=== PATIENT | male | born 1975 | race Caucasian/White ===

== ENCOUNTER 2019-10-30 14:18 | Emergency (ER) | payer BC ==
--- OUTSIDE RECORDS SUMMARY | 2019-10-30 14:40 | XMS REPORT | Continuity of Care Document ---
:1975 Author Organization [employer] Care Team Providers Name Role Phone [employer] Unavailable Un available Problems Problem Status Onset Classification Date Comments Sourc e Date Reported Hypercholesterolemia Active Problem 07/16/2018 [facility] (disorder) [facility] Hypertensive disorder, Active Problem 07/16/2018 systemic arterial Me dical (disorder) Group Medications Medication Details Route Status Patient Ordering Order Source Instructions Provider Date atorvastatin 20 20 mg = 1 Active MH mg oral tablet tab, PO, 018 Medical Bedtime, # Group 90 tab, 5 Refill(s), Pharmacy: [facility] [id number] irbesartan 150 150 mg = 1 Active MH mg oral tablet tab, PO, 018 Medical Daily, # 90 Group tab, 5 Refill(s), Pharmacy: [facility] [id number] ubiquinone 100 100 mg = 1 Active MH mg oral capsule cap, PO, 018 Medical Daily, # 30 Group cap, 0 Refill(s) Melatonin 10 mg 10 mg = 1 Active MH oral capsule cap, PO, 018 Medical Bedtime, 0 Group Refill(s) multivitamin Daily, 0 Active MH Refill(s) 018 Medical Group [place]-3 oral 0 Refill(s) Active MH capsule 018 Medical Group Allergies, Adverse Reactions, Alerts Substance Category Reaction Severity Reaction Status Date Comments S ource type Reported NKFA Assertion Food Active allergy Medical Group No Known Assertion Drug MH Medication allergy Medic al Allergies Group Immunizations No Data Provided for This Section Results No Data Provided for This Section Pathology Reports No Data Provided for This Section Diagnostic Reports No Data Provided for This Section Consultation Notes No Data Provided for This Section Discharge Summaries No Data Provided for This Section History and Physicals No Data Provided for This Section Vital Signs Vital Sign Value Date Comments Source Heart Rate 84 12/27/2017 [facility] p Temperature Oral (F) 97.9 F 12/27/2017 [facility] Systolic (mm Hg) 131 12/27/2017 Medical Group Diastolic (mm Hg) 94 12/27/2017 Medical Group BMI Calculated 26.84 12/27/2017 Medical Gr oup Weight 97.415 12/27/2017 Medical Grou p Height 190.5 cm 12/27/2017 Medical Gr[facility] p Weight 98.267 07/06/2017 Medical Grou p BMI Calculated 27.08 07/06/2017 Medical Gr oup Height 190.5 cm 07/06/2017 Medical Gr[facility] p Temperature Oral (F) 97.8 F 07/06/2017 [facility] Heart Rate 61 07/06/2017 Medical Gr[facility] p Systolic (mm Hg) 136 07/06/2017 [facility] Diastolic (mm Hg) 93 07/06/2017 Medical Group Height 190.5 cm 04/13/2017 Medical Grou p Weight 98.295 04/13/2017 Medical Grou p BMI Calculated 27.09 04/13/2017 Medical Gr oup Systolic (mm Hg) 148 04/13/2017 Medical Group Diastolic (mm Hg) 95 04/13/2017 Medical Group Heart Rate 73 04/13/2017 Medical Grou p Temperature Oral (F) 97.8 F 04/13/2017 [facility] Encounters Location Location Encounter Encounter Reason Attending ADM DC Stat us Source Details Type Number For Provider Date Date Visit Outpatient [id number] JESSENIA CALVERT 04/13 [facility] Outpatient [id number] Jessenia Calvert 04/13 04/14 Primary /2017 [facility] Phone [id number] 04/14 04/16 Primary Message /2017 [facility] Phone [id number] 04/16 04/18 Primary Message /2017 [facility] Phone [id number] 04/16 04/18 Primary Message /2017 Medical Care [facility] Phone [id number] 07/05 07/07 Primary Message /2017 [facility] Outpatient [id number] JESSENIA CALVERT 07/06 Acti ve [facility] Outpatient [id number] Jessenia Calvert 07/06 07/07 Primary /2017 Medical Care [facility] Outpatient [id number] JESSENIA NEHAL 12/27 Acti ve [facility] Outpatient [id number] Jessenia Nehal 12/27 12/28 Primary /2017 [facility] Outpatient [id number] JESSENIA NEHAL 05/11 Acti ve [facility] Ambulatory [id number] Jessenia Nehal 05/11 05/11 Primary Pre-Reg /2018 [facility] Phone [phone] 05/11 05/13 Primary Message /2018 [facility] Procedures Procedure Code Date Perfomer Comments Source Miscellaneous [id number] 03/15/2013 Broken bone on [facility] operations<sup>1</s left foot toe. G roup up> Amputation of [id number] 03/15/2009 Right foot Medical toe<sup>2</sup> Group Assessment and Plan No Data Provided for This Section Plan of Care No Data Provided for This Section Social History Social History Date Source Social History TypeResponse 12/27/2017 Medical G roup Smoking Status Never smoker; Exposure to Tobacco Smoke None; Cigarette Smoking Last 365 Days No; Reg Smoking Cessation Counseling No entered on: 12/27/17 Family History No Data Provided for This Section Advance Directives No Data Provided for This Section Functional Status No Data Provided for This Section
--- NOTE | 2019-10-30 15:02 | RAD REPORT ---
EXAM DESCRIPTION: CT - Stone Protocol - 10/30/2019 2:50 pm CLINICAL HISTORY: Flank pain. ABD PAIN COMPARISON: No comparisons TECHNIQUE: Axial images were obtained without oral or IV contrast. Lack of contrast limits solid org an and vascular assessment. The [id number] spans the entirety of the system partially obscuring uppermost abdomen and lung bases. Coronal reformatted images were obtained and reviewed. All CT scans are performed using dose optimization technique as appropriate and may include automated exposure control or mA/KV adjustment according to patient size. FINDINGS: The lower lung shirley are clear. Imaged portions of the liver and spleen show no suspicious findings on non-contrast imaging. The panc reas and adrenal glands are normal. No pathologic lymphadenopathy in the abdomen or pelvis. Punctate calculus is seen superior pole left kidney. No hydronephrosis present. Small cyst is present superior pole left kidney measuring 2 cm. No bowel obstruction, free air, free fluid or abscess. Normal appendix noted.There is inflammatory ch anges seen surrounding the sigmoid colon in the left lower quadrant involving the a 6 cm length of th e sigmoid colon compatible with acute diverticulitis. Mild dextroscoliosis of the lumbar spine. IMPRESSION: Mild acute sigmoid diverticulitis is present without abscess. Suggest followup colonoscopy after appropriate therapy to ensure that a inflammatory mass is not pres ent in the region.
[2019-10-30] MEDS ORDERED: CIPROFLOXACIN 400mg IV 400 MG/200 ML BAG IV ONE (15:17)
[2019-10-30] MEDS ORDERED: METRONIDAZOLE 500mg IVPB 500 MG/100 ML BAG IV ONE (15:17)
[2019-10-30] MEDS ORDERED: NA CHLORIDE 0.9% 1,000 ML ONE (15:21)
[2019-10-30 15:56] LABS: Absolute Lymphocytes (CBC) 0.9 K/uL (0.7-4.9); Basophils % 0.1 % (0-1.3); Hematocrit 43.4 % (39.6-49.0); Lymphocytes % 6.7 % (15.3-44.8); MPV 7.8 fL (7.6-11.3); RBC Red Blood Cell Count 4.75 M/uL (4.33-5.43)
[2019-10-30 16:11] LABS: Albumin 3.8 g/dL (3.4-5.0); Bilirubin Direct 0.1 mg/dL (0-0.2); Bilirubin Total 0.6 mg/dL (0.2-1.0); Potassium 3.3 mmol/L (3.5-5.1); Protein, Total 6.7 g/dL (6.4-8.2)
--- NOTE | 2019-10-30 16:14 | EDPHYS ---
Physician Documentation [facility] Name: Ector Mary Age: 44 yrs Sex: Male : 1975 Arrival Date: 10/30/2019 Time: 14:23 Bed 17 Private MD: ED Physician Rolo Vanegas HPI: 10/29 16:10 This 44 yrs old Male presents to ER via EMS with complaints of Abdominal Pain.rn 16:10 The patient presents with abdominal pain in the left lower quadrant. Onset: The rn symptoms/episode began/occurred today. The symptoms do not radiate. Associated signs and symptoms: Pertinent positives: nausea. The symptoms are described as intermittent, sharp. Modifying factors: The symptoms are alleviated by nothing, the symptoms are aggravated by touching the area. Severity of pain: At its worst the pain was moderate in the emergency department the pain has improved. The patient has not experienced similar symptoms in the past. Historical: - Allergies: 14:27 No Known Allergies; em - PMHx: 14:27 Hyperlipidemia; Hypertension; em - PSHx: 14:27 toe amputation; em - Immunization history:: Adult Immunizations up to date. - Social history:: Smoking status: Patient denies any tobacco usage or history of. - Family history:: not pertinent. - Hospitalizations: : No recent hospitalization is reported. ROS: 16:10 Constitutional: Negative for fever, chills, and weight loss, Eyes: Negative for injury, rn pain, redness, and discharge, Neck: Negative for injury, pain, and swelling, Cardiovascular: Negative for chest pain, palpitations, and edema, Respiratory: Negative for shortness of breath, cough, wheezing, and pleuritic chest pain, Abdomen/GI: + abd pain with nausea MS/Extremity: Negative for injury and deformity, Skin: Negative for injury, rash, and discoloration, Neuro: Negative for headache, weakness, numbness, tingling, and seizure. Exam: 16:10 Constitutional: This is a well developed, well nourished patient who is awake, alert, rn and in no acute distress. Head/Face: Normocephalic, atraumatic. Cardiovascular: Regular rate and rhythm. No pulse deficits. Respiratory: Mild tachypnea. speaking full sentences Abdomen/GI: soft, mild LLQ tenderness, no rebound Skin: Warm, dry MS/ Extremity: Pulses equal, no cyanosis. Neurovascular intact. Full, normal range of motion. Equal circumference. Neuro: Awake and alert, GCS 15 Vital Signs: 14:23 BP 133 / 96; Pulse 69; Resp 22; Pulse Ox 100% on R/A; Weight 93.44 kg; Height 6 ft. 3 em in. (190.50 cm); Pain 4/10; 15:00 BP 137 / 82; Pulse 70; Resp 16; Pulse Ox 100% ; jl7 16:00 BP 127 / 71; Pulse 72; Resp 18; Pulse Ox 97% ; jl7 16:45 BP 123 / 69; Pulse 77; Resp 17; Pulse Ox 97% ; jl7 14:23 Body Mass Index 25.75 (93.44 kg, 190.50 cm) em MDM: 14:35 Patient medically screened. rn 16:10 Differential diagnosis: diverticulitis, gastritis, non-specific abd pain, rn Ureterolithiasis. Data reviewed: vital signs, nurses notes, lab test result(s), radiologic studies, CT scan, and as a result, I will discharge patient. Counseling: I had a detailed discussion with the patient and/or guardian regarding: the historical points, exam findings, and any diagnostic results supporting the discharge/admit diagnosis, lab results, radiology results, the need for outpatient follow up, to return to the emergency department if symptoms worsen or persist or if there are any questions or concerns that arise at home. Response to treatment: the patient's symptoms have markedly improved after treatment, and as a result, I will discharge patient. Special discussion: I discussed with the patient/guardian in detail that at this point there is no indication for admission to the hospital. It is understood, however, that if the symptoms persist or worsen the patient needs to return immediately for re-evaluation. Based on the history and exam findings, there is no indication for further emergent testing or inpatient evaluation. 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 I discussed with the patient/guardian the need to see the primary care provider for further evaluation of the symptoms. 10/29 14:35 Order name: Basic Metabolic Panel; Complete Time: 16:23 rn 10/29 14:35 Order name: CBC with Diff; Complete Time: 14:04 rn 10/29 14:35 Order name: Hepatic Function; Complete Time: 16:23 rn 10/29 14:35 Order name: Lipase; Complete Time: 16:23 rn 10/29 14:35 Order name: Urine Culture rn 10/29 14:35 Order name: Urine Microscopic Only; Complete Time: 14:04 rn 10/29 14:35 Order name: IV Saline Lock; Complete Time: 15:37 rn 10/29 14:35 Order name: Labs collected and sent; Complete Time: 15:37 rn 10/29 14:35 Order name: CT Stone Protocol; Complete Time: 15:03 rn 10/29 15:49 Order name: Urine Dipstick--Ancillary (enter results); Complete Time: 14:04 eb 10/29 14:35 Order name: Urine Dipstick-Ancillary (obtain specimen); Complete Time: 15:37 rn Administered Medications: 15:30 Drug: Cipro 400 mg Volume: 200 ml; Route: IVPB; Infused Over: 60 mins; Site: left wrist;jl7 16:30 Follow up: Response: No adverse reaction; IV Status: Completed infusion jl7 15:30 Drug: NS 0.9% 1000 ml Route: IV; Rate: 1 bolus; Site: left wrist; jl7 16:30 Follow up: Response: No adverse reaction; IV Status: Completed infusion; IV Intake: jl7 1000ml 15:35 Drug: Flagyl 500 mg Volume: 100 ml; Route: IVPB; Rate: 200 ml/hr; Infused Over: 30 jl7 mins; Site: left wrist; 16:05 Follow up: Response: No adverse reaction; IV Status: Completed infusion jl7 16:40 Drug: Demerol 25 mg Route: IVP; Site: left wrist; jl7 17:00 Follow up: Response: No adverse reaction; Pain is decreased jl7 Disposition: 10/30/19 16:14 Discharged to Home. Impression: Diverticulitis of large intestine without perforation or abscess without bleeding. - Condition is Stable. - Discharge Instructions: Diverticulitis. - Prescriptions for Zofran ODT 4 mg Oral tablet,disintegrating - place 1 tablet by TRANSLINGUAL route every 8 hours As needed; 15 tablet. Flagyl 500 mg Oral Tablet - take 1 tablet by ORAL route every 8 hours for 10 days; 30 tablet. Tylenol- Codeine #3 300-30 mg Oral Tablet - take 1 tablet by ORAL route every 6 hours As needed; 20 tablet. Cipro 500 mg Oral Tablet - take 1 tablet by ORAL route every 12 hours for 10 days; 20 tablet. - Medication Reconciliation Form, Thank You Letter, Antibiotic Education, Prescription Opioid Use form. - Follow up: Private Physician; When: As needed; Reason: Recheck today's complaints, Re-evaluation by your physician. - Problem is new. - Symptoms have improved. Signatures: Dispatcher [employer] [place], RN Rolo Castaneda MD MD rn Leal, Jahala, RN RN jl7 Corrections: (The following items were deleted from the chart) 17:17 16:14 10/30/2019 16:14 Discharged to Home. Impression: Diverticulitis of large jl7 intestine without perforation or abscess without bleeding. Condition is Stable. Forms are Medication Reconciliation Form, Thank You Letter, Antibiotic Education, Prescription Opioid Use. Follow up: Private Physician; When: As needed; Reason: Recheck today's complaints, Re-evaluation by your physician. Problem is new. Symptoms have improved. rn
--- NOTE | 2019-10-30 16:14 | ER ---
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 Coronavirus screen: Client denies travel out of the [place] in the last 14 days. Ebola Screen: Patient negative for fever greater than or equal to 101.5 degrees Fahrenheit, and additional compatible Ebola Virus Disease symptoms Patient denies exposure to infectious person. Patient denies travel to an Ebola-affected area in the 21 days before illness onset. No symptoms or risks identified at this time. Initial Sepsis Screen: Does the patient meet any 2 criteria? No. Patient's initial sepsis screen is negative. Does the patient have a suspected source of infection? No. Patient's initial sepsis screen is negative. Risk Assessment: Do you want to hurt yourself or someone else? Patient reports no desire to harm self or others. Onset of symptoms was October 30, 2019. 14:23 Method Of Arrival: EMS: [facility] em 14:23 Acuity: ANGELO 3 em Triage Assessment: 14:27 General: Appears in no apparent distress. uncomfortable, Behavior is calm, cooperative. em Pain: Complains of pain in pelvis Pain currently is 4 out of 10 on a pain scale. Neuro: Level of Consciousness is awake, alert, obeys commands, Oriented to person, place, time, situation, Appropriate for age. Respiratory: Airway is patent Respiratory effort is even, unlabored, Respiratory pattern is regular, symmetrical. GI: Abdomen is distended, Patient currently denies nausea, vomiting. : Denies burning with urination. Derm: Skin is intact, is healthy with good turgor, Skin is pink, warm \T\ dry. Musculoskeletal: Capillary refill < 3 seconds, Range of motion: intact in all extremities. Historical: - Allergies: 14: No Known Allergies; em - PMHx: 14:27 Hyperlipidemia; Hypertension; em - PSHx: 14:27 toe amputation; em - Immunization history:: Adult Immunizations up to date. - Social history:: Smoking status: Patient denies any tobacco usage or history of. - Family history:: not pertinent. - Hospitalizations: : No recent hospitalization is reported. Screenin:30 Abuse screen: Denies threats or abuse. Denies injuries from another. Nutritional jl7 screening: No deficits noted. Tuberculosis screening: No symptoms or risk factors identified. Fall Risk IV access (20 points). Assessment: 14:30 General: See triage assessment. jl7 15:00 Reassessment: Pt voided approximately 200 mL. jl7 16:00 Reassessment: Patient appears in no apparent distress at this time. No changes from jl7 previously documented assessment. Patient and/or family updated on plan of care and expected duration. Pain level reassessed. Patient is alert, oriented x 3, equal unlabored respirations, skin warm/dry/pink. Vital Signs: 14:23 BP 133 / 96; Pulse 69; Resp 22; Pulse Ox 100% on R/A; Weight 93.44 kg; Height 6 ft. 3 em in. (190.50 cm); Pain 4/10; 15:00 BP 137 / 82; Pulse 70; Resp 16; Pulse Ox 100% ; jl7 16:00 BP 127 / 71; Pulse 72; Resp 18; Pulse Ox 97% ; jl7 16:45 BP 123 / 69; Pulse 77; Resp 17; Pulse Ox 97% ; jl7 14:23 Body Mass Index 25.75 (93.44 kg, 190.50 cm) em ED Course: 14:23 Patient arrived in ED. em 14:26 Triage completed. em 14:27 Arm band placed on. em 14:30 Patient has correct armband on for positive identification. Bed in low position. Call jl light in reach. Side rails up X 1. Pulse ox on. NIBP on. 14:30 Maintain EMS IV. Dressing intact. Good blood return noted. Site clean \T\ dry. Gauge \T\ jl 7 site: 20 left wrist. 14:30 Bladder scan completed. 150 mL. jl7 14:35 Rolo Vanegas MD is Attending Physician. rn 14:50 CT Stone Protocol In Process Unspecified. EDMS 14:51 Hemant Nelson RN is Primary Nurse. jl7 15:40 Initial lab(s) drawn, by az, sent to lab. Urine collected: clean catch specimen, clear. jl7 17:10 No provider procedures requiring assistance completed. IV discontinued, intact, jl7 bleeding controlled, No redness/swelling at site. Pressure dressing applied. Administered Medications: 15:30 Drug: Cipro 400 mg Volume: 200 ml; Route: IVPB; Infused Over: 60 mins; Site: left wrist;jl7 16:30 Follow up: Response: No adverse reaction; IV Status: Completed infusion jl7 15:30 Drug: NS 0.9% 1000 ml Route: IV; Rate: 1 bolus; Site: left wrist; jl7 16:30 Follow up: Response: No adverse reaction; IV Status: Completed infusion; IV Intake: jl7 1000ml 15:35 Drug: Flagyl 500 mg Volume: 100 ml; Route: IVPB; Rate: 200 ml/hr; Infused Over: 30 jl7 mins; Site: left wrist; 16:05 Follow up: Response: No adverse reaction; IV Status: Completed infusion jl7 16:40 Drug: Demerol 25 mg Route: IVP; Site: left wrist; jl7 17:00 Follow up: Response: No adverse reaction; Pain is decreased jl7 Intake: 16:30 IV: 1000ml; Total: 1000ml. jl7 Outcome: 16:14 Discharge ordered by . rn 17:13 Discharged to home via wheelchair, with family. jl7 17:13 Condition: stable 17:13 Discharge instructions given to patient, family, Instructed on discharge instructions, follow up and referral plans. medication usage, Demonstrated understanding of instructions, follow-up care, medications, Prescriptions given X 4. 17:17 Patient left the ED. jl7 Signatures: Dispatcher [employer] Jim Beach RN RN em Nieto, Roman, MD MD rn Leal, Jahala, RN RN jl7
[2019-10-30] MEDS ORDERED: MEPERIDINE HCL 50 MG/ML ONE (16:48)
[2019-10-30 16:53] LABS: Urine Amorphous Sediment 3+ /HPF (NONE SEEN); Urine Bacteria <20 /HPF (NONE SEEN); Urine Culture Reflex Order NOT NEEDED; Urine RBC <5 /HPF (NONE SEEN)
[2019-10-30 16:55] LABS: Urine Blood NEGATIVE (NEG); Urine Glucose NEGATIVE (NEG); Urine Protein NEGATIVE (NEG); Urine Specific Gravity 1.025 (1.005-1.030)
[2019-10-30 17:40] LABS: Blood Morphology Comment NOT SEEN (NOT SEEN); Platelet Estimate ADEQ; Urine White Blood Cell Casts OK
[2019-10-30 18:10] VITALS: O2SAT 97
[2019-10-30 18:11] VITALS: BP 123/69
== END 2019-10-30 17:17 | disposition home or self-care (01) ==
LOC: ER 14:18
DX: K57.32 Diverticulitis of large intestine without perforation or abscess without bleeding (principal); I10 Essential (primary) hypertension
CPT/HCPCS: 87088; 85025; 87086; 80048; 36415; 80076; 83690; 76377; 74176; J2175; J7030; J0744; 81003; 81015; 96365; 96375; 99284

== ENCOUNTER 2019-11-07 18:02 | Inpatient (IN) | payer BC ==
--- OUTSIDE RECORDS SUMMARY | 2019-11-07 18:03 | XMS REPORT | Continuity of Care Document ---
:1975 Author Organization [employer] Care Team Providers Name Role Phone [employer] Unavailable Un available Problems Problem Status Onset [...] # Group 90 tab, 5 Refill(s), Pharmacy: [facility] [id number] irbesartan 150 150 mg = 1 Active MH mg oral tablet tab, PO, 018 Medical Daily, # 90 Group tab, 5 Refill(s), Pharmacy: [facility] [id number] ubiquinone 100 100 mg = 1 Active MH mg oral capsule cap, PO, 018 Medical Daily, # 30 Group cap, 0 Refill(s) Melatonin 10 mg 10 mg = 1 Active MH oral capsule cap, PO, 018 Medical Bedtime, 0 Group Refill(s) multivitamin Daily, 0 Active MH Refill(s) 018 Medical Group [place]-3 oral 0 Refill(s) Active MH capsule 018 [...] Number For Provider Date Date Visit Outpatient [id number] JESSENIA CALVERT 04/[address] [facility] Outpatient [id number] Jessenia Calvert 04/13 04/14 Primary /2017 [facility] Phone [id number] 04/14 04/16 Primary Message /2017 [facility] Phone [id number] 04/16 04/18 Primary Message /2017 [facility] Phone [id number] 04/16 04/18 Primary Message /2017 Medical Care [facility] Phone [id number] 07/05 07/07 Primary Message /2017 [facility] Outpatient [id number] JESSENIA CALVERT 07/06 Acti ve [facility] Outpatient [id number] Jessenia Calvert 07/06 07/07 Primary /2017 Medical Care [facility] Outpatient [id number] JESSENIA NEHAL 12/27 Acti ve [facility] Outpatient [id number] Jessenia Nehal 12/27 12/28 Primary /2017 [facility] Outpatient [id number] JESSENIA NEHAL 05/11 Acti ve [facility] Ambulatory [id number] Jessenia Nehal 05/11 05/11 Primary Pre-Reg /2018 [facility] Phone [phone] 05/11 05/13 Primary Message /2018 [facility] Procedures Procedure Code Date Perfomer Comments Source Miscellaneous [id number] 03/15/2013 Broken bone on [facility] operations<sup>1</s left foot toe. G roup up> Amputation of [id number] 03/15/2009 Right foot Medical toe<sup>2</sup> Group Assessment [...]
[2019-11-07] MEDS ORDERED: MORPHINE 4 MG/ML SYR ONE (18:30)
[2019-11-07] MEDS ORDERED: NA CHLORIDE 0.9% 1,000 ML ONE ×2 (18:30→20:08)
[2019-11-07] MEDS ORDERED: ONDANSETRON 4 MG/2 ML VIAL ONE ×2 (18:30→20:38)
[2019-11-07 18:51] LABS: Absolute Lymphocytes (CBC) 0.4 K/uL (0.7-4.9); Basophils % 0.1 % (0-1.3); Hematocrit 40.7 % (39.6-49.0); Lymphocytes % 2.8 % (15.3-44.8); MPV 7.4 fL (7.6-11.3)
[2019-11-07 19:07] LABS: Albumin 2.8 g/dL (3.4-5.0); Bilirubin Direct 0.2 mg/dL (0-0.2); Bilirubin Total 0.8 mg/dL (0.2-1.0); Potassium 3.2 mmol/L (3.5-5.1); Protein, Total 6.9 g/dL (6.4-8.2)
--- NOTE | 2019-11-07 19:29 | RAD REPORT ---
EXAM DESCRIPTION: CT - Abdomen Pelvis W Contrast - 11/07/2019 6:42 pm CLINICAL HISTORY: ABD PAIN COMPARISON: Stone Protocol dated 10/30/2019 TECHNIQUE: Biphasic, helical CT imaging of the abdomen and pelvis was performed following 100 ml non -ionic IV contrast. No oral contrast administered. All CT scans are performed using dose optimization technique as appropriate and may include automated exposure control or mA/KV adjustment according to patient size. FINDINGS: No suspicious findings in the lung bases. The liver, spleen, pancreas, gallbladder, biliary tree, adrenal glands and kidneys show no new findin gs from the October 29 study. Tightly contracted urinary bladder shows no suspicious finding. Prominen t seminal vesicles again noted. Renal function is symmetric. No acute renal parenchymal process. No new adrenal finding. No gastric dilatation or wall thickening. Duodenum is unremarkable. Patient has a large amount of noe e intraperitoneal air. Multiple dilated small bowel loops are present. Edematous/ inflammatory strand ing present throughout the peritoneal fat. Several transition points are seen in the small bowel. Pat ient may have inflammatory adhesions. The exact site of perforation is uncertain but presumed to be s igmoid colon. There is a 5 x 4 centimeter abscess in the anterior low midline pelvis (image 82/112). An additional 5 x 2 cm abscess collection is present in the lower left pelvis. This may be contiguous with the larger abscess. No other defined abscess collections seen. Small amounts of free fluid present. No pneumatosis. No hernia, mass or bulky lymphadenopathy. No suspicious bony findings. IMPRESSION: Bowel perforation pattern presumed to be at the site of recent sigmoid diverticulitis. T here is a large volume of free intraperitoneal air. Two small abscess collections are present in the midline and left low pelvis. Largest is 5 x 4 cm. The wall thickening of the sigmoid colon is slightly improved from October 29 imaging. Multiple dilated small bowel loops are present. Multiple transition points are present possibly infla mmatory adhesions. Small bowel pattern could be obstruction, ileus or a combination.
--- NOTE | 2019-11-07 19:55 | EDPHYS ---
Physician Documentation [facility] Name: Ector Mary Age: 44 yrs Sex: Male : 1975 Arrival Date: 11/07/2019 Time: 18:02 Bed 7 Private MD: NORBERT Physician Leo Bowen HPI: 11/06 19:07 This 44 yrs old Male presents to ER via Ambulatory with complaints of kb Abdominal Distention, Diverticulitis flare up, Fever. 19:07 The patient presents with abdominal pain in the left upper quadrant, in the left lower kb quadrant. Onset: The symptoms/episode began/occurred last week. The symptoms do not radiate. Associated signs and symptoms: none. The symptoms are described as constant. Modifying factors: The symptoms are alleviated by nothing, the symptoms are aggravated by nothing. Severity of pain: At its worst the pain was moderate in the emergency department the pain is unchanged. The patient has experienced a previous episode. The patient has been recently seen by a physician:. Pt reports abd pain and distention since last week, was diagnosed with diverticulitis here last Wednesday and started on antibiotics. Pt states he has been taking his antibiotics as prescribed and seemed to be getting better until today at 1500 when he started having more severe pain that has not stopped. . Historical: - Allergies: 18:16 No Known Allergies; ss - PMHx: 18:16 Hypertension; Hyperlipidemia; ss - PSHx: 18:16 toe amputation; ss - Immunization history:: Flu vaccine is not up to date. - Social history:: Smoking status: Patient denies any tobacco usage or history of. Patient/guardian denies using alcohol, street drugs. ROS: 19:07 Constitutional: Negative for fever, chills, and weight loss, Cardiovascular: Negative kb for chest pain, palpitations, and edema, Respiratory: Negative for shortness of breath, cough, wheezing, and pleuritic chest pain, Back: Negative for injury and pain, MS/Extremity: Negative for injury and deformity, Skin: Negative for injury, rash, and discoloration, Neuro: Negative for headache, weakness, numbness, tingling, and seizure. 19:07 Abdomen/GI: Positive for abdominal pain, Negative for nausea, vomiting, and diarrhea, constipation. Exam: 19:07 Constitutional: This is a well developed, well nourished patient who is awake, alert, kb and in no acute distress. Head/Face: Normocephalic, atraumatic. Chest/axilla: Normal chest wall appearance and motion. Nontender with no deformity. No lesions are appreciated. Cardiovascular: Regular rate and rhythm with a normal S1 and S2. No gallops, murmurs, or rubs. Normal PMI, no JVD. No pulse deficits. Respiratory: Lungs have equal breath sounds bilaterally, clear to auscultation and percussion. No rales, rhonchi or wheezes noted. No increased work of breathing, no retractions or nasal flaring. Back: No spinal tenderness. No costovertebral tenderness. Full range of motion. Skin: Warm, dry with normal turgor. Normal color with no rashes, no lesions, and no evidence of cellulitis. MS/ Extremity: Pulses equal, no cyanosis. Neurovascular intact. Full, normal range of motion. Neuro: Awake and alert, GCS 15, oriented to person, place, time, and situation. Cranial nerves II-XII grossly intact. Motor strength 5/5 in all extremities. Sensory grossly intact. Cerebellar exam normal. Normal gait. 19:07 Abdomen/GI: Inspection: distension, Bowel sounds: normal, in all quadrants, Palpation: soft, in all quadrants, mild abdominal tenderness, in the left lower quadrant, moderate abdominal tenderness, in the left upper quadrant. Vital Signs: 18:14 BP 92 / 63; Pulse 142; Resp 18; Temp 98.3; Pulse Ox 100% ; Pain 7/10; ss 18:58 BP 94 / 59; Pulse 117; Resp 20; Temp 99.9(O); Pulse Ox 97% on R/A; Pain 4/10; em 20:13 Weight 89.09 kg; Height 6 ft. 3 in. (190.50 cm); rv 20:22 BP 101 / 66; Pulse 108; Resp 18; Temp 99; Pulse Ox 99% on R/A; rv 20:13 Body Mass Index 24.55 (89.09 kg, 190.50 cm) rv MDM: 18:12 Patient medically screened. kb 19:06 Data reviewed: vital signs, nurses notes. Data interpreted: Pulse oximetry: on room air kb is 97 %. Interpretation: normal. 19:45 Counseling: I had a detailed discussion with the patient and/or guardian regarding: the kb historical points, exam findings, and any diagnostic results supporting the discharge/admit diagnosis, lab results, radiology results, the need for further work-up and treatment in the hospital. Physician consultation: Thierry Saldivar MD was contacted at 19:52, regarding consult, patient's condition, and will see patient in OR, immediately. 19:52 Physician consultation: Osei YATES was contacted at 19:52, regarding kb admission, to the operating room, patient's condition, and will see patient in ED, shortly. 11/06 18:19 Order name: Basic Metabolic Panel; Complete Time: 19:40 kb 11/06 18:19 Order name: CBC with Diff; Complete Time: 19:02 kb 11/06 18:19 Order name: Hepatic Function; Complete Time: 19:40 kb 11/06 18:19 Order name: Lipase; Complete Time: 19:40 kb 11/06 18:19 Order name: Blood Culture Adult (2) kb 11/06 18:19 Order name: Lactate; Complete Time: 19:09 kb 11/06 18:19 Order name: Procalcitonin; Complete Time: 20:05 kb 11/06 18:19 Order name: CT Abd/Pelvis - IV Contrast Only; Complete Time: 19:40 kb 11/06 18:54 Order name: Urine Dipstick--Ancillary (enter results); Complete Time: 20:05 bd 11/06 18:19 Order name: IV Saline Lock; Complete Time: 18:38 kb 11/06 18:19 Order name: Labs collected and sent; Complete Time: 18:38 kb 11/06 20:18 Order name: CONS Physician Consult EDMS Administered Medications: 18:32 Drug: NS 0.9% 1000 ml Route: IV; Rate: 1000 ml; Site: right forearm; em 20:09 Follow up: IV Status: Completed infusion; IV Intake: 1000ml rv 18:32 Drug: Zofran (Ondansetron) 4 mg Route: IVP; Site: right forearm; em 20:09 Follow up: Response: No adverse reaction rv 18:34 Drug: morphine 4 mg Route: IVP; Site: right forearm; em 20:08 Follow up: Response: No adverse reaction; Marked relief of symptoms; RASS: Alert and rv Calm (0) 20:00 Drug: Zosyn 3.375 grams Route: IVPB; Infused Over: 60 mins; Site: right forearm; rv 20:24 Follow up: IV Status: Infusion continued upon admission rv 20:08 Drug: NS 0.9% 1000 ml Route: IV; Rate: 125 ml/hr; Site: right forearm; rv 20:24 Follow up: IV Status: Infusion continued upon admission rv Disposition: 11/07 09:18 Co-signature as Attending Physician, Leo Bowen MD I agree with the assessment and crys plan of care. Disposition: 11/07/19 19:54 Hospitalization ordered by Alma Aleman for Inpatient Admission. Preliminary diagnosis is Diverticulitis of intestine, part unspecified, with perforation and abscess without bleeding. - Bed requested for Telemetry/MedSurg (Inpatient). - Status is Inpatient Admission. rv - Condition is Stable. - Problem is new. - Symptoms are unchanged. Signatures: Dispatcher [employer] EDMS Tracey De La Paz, STANDPIPE TENDER-C STANDPIPE TENDER-Leo Martinez MD MD cha Munoz, Edgar, RN RN Oneida Jacobs RN RN ss Vicente, Ronaldo, MAT RN rv Corrections: (The following items were deleted from the chart) 11/06 20:25 19:54 Hospitalization Ordered by Alma Aleman MD for Inpatient Admission. Preliminary rv diagnosis is Diverticulitis of intestine, part unspecified, with perforation and abscess without bleeding. Bed requested for Telemetry/MedSurg (Inpatient). Status is Inpatient Admission. Condition is Stable. Problem is new. Symptoms are unchanged. kb
--- NOTE | 2019-11-07 19:55 | ER ---
Nurse's Notes [facility] Name: Ector Mary Age: 44 yrs Sex: Male : 1975 Arrival Date: 11/07/2019 Time: 18:02 Bed 7 Private MD: Diagnosis: Diverticulitis of intestine, part unspecified, with perforation and abscess without bleeding Presentation: 11/06 18:14 Chief complaint: Patient states: Diagnosed with diverticulitis by our facility last ss week. States he has been taking his antibiotics as prescribed. Pain was slowly getting better, then returned severe at 3pm today. Coronavirus screen: Client denies travel out of the [place] in the last 14 days. At this time, the client does not indicate any symptoms associated with coronavirus-19. Ebola Screen: Patient denies travel to an Ebola-affected area in the 21 days before illness onset. Initial Sepsis Screen: Does the patient meet any 2 criteria? HR > 90 bpm. Risk Assessment: Do you want to hurt yourself or someone else? Patient reports no desire to harm self or others. Onset of symptoms is unknown. 18:14 Method Of Arrival: Ambulatory ss 18:14 Acuity: ANGELO 2 ss 20:11 Initial Sepsis Screen: Does the patient have a suspected source of infection? Yes: rv Acute abdominal pain. Historical: - Allergies: 18:16 No Known Allergies; ss - PMHx: 18:16 Hypertension; Hyperlipidemia; ss - PSHx: 18:16 toe amputation; ss - Immunization history:: Flu vaccine is not up to date. - Social history:: Smoking status: Patient denies any tobacco usage or history of. Patient/guardian denies using alcohol, street drugs. Screenin:20 Abuse screen: Denies threats or abuse. Nutritional screening: No deficits noted. em Tuberculosis screening: No symptoms or risk factors identified. Fall Risk None identified. Assessment: 18:20 General: Appears uncomfortable, ill, Behavior is calm, cooperative, appropriate for em age, Reports 101 temp. yesterday. Pain: Complains of pain in abdomen Pain currently is 6 out of 10 on a pain scale. Neuro: Level of Consciousness is awake, alert, obeys commands, Oriented to person, place, time, situation, Appropriate for age. Cardiovascular: Capillary refill < 3 seconds Patient's skin is warm and dry. Rhythm is sinus tachycardia. Respiratory: Airway is patent Respiratory effort is even, unlabored, Respiratory pattern is regular, symmetrical. GI: Abdomen is round non-distended, Bowel sounds present X 4 quads. Abd is soft X 4 quads Abdomen is tender to palpation in right lower quadrant and left lower quadrant. Derm: Skin is intact, is healthy with good turgor, Skin is pink, warm \T\ dry. Musculoskeletal: Capillary refill < 3 seconds, Range of motion: intact in all extremities. 20:09 Reassessment: patient is comfortable and stable at this time. JUDITH Webb explained the rv result of the CT scan and the plan of care. patient agreed. new orders, patient is for STAT OR. awaiting OR team. Pain: Complains of pain in right lower quadrant. Neuro: Level of Consciousness is awake, alert, obeys commands, Oriented to person, place, time, situation. Cardiovascular: Rhythm is sinus tachycardia. Respiratory: Airway is patent Respiratory effort is even, unlabored. GI: Abdomen is round non-distended. 20:23 Reassessment: report given to MAT Holliday. patient taken to OR via stretcher with rv fluids and antibiotic ongoing. Vital Signs: 18:14 BP 92 / 63; Pulse 142; Resp 18; Temp 98.3; Pulse Ox 100% ; Pain 7/10; ss 18:58 BP 94 / 59; Pulse 117; Resp 20; Temp 99.9(O); Pulse Ox 97% on R/A; Pain 4/10; em 20:13 Weight 89.09 kg; Height 6 ft. 3 in. (190.50 cm); rv 20:22 BP 101 / 66; Pulse 108; Resp 18; Temp 99; Pulse Ox 99% on R/A; rv 20:13 Body Mass Index 24.55 (89.09 kg, 190.50 cm) rv ED Course: 18:02 Patient arrived in ED. as 18:07 Tracey De La Paz FNP-C [facility]. kb 18:07 Leo Bowen MD is Attending Physician. kb 18:15 Triage completed. ss 18:16 Jim Fajardo, MAT is Primary Nurse. em 18:16 Arm band placed on Patient placed in an exam room, on a stretcher. ss 18:20 Patient has correct armband on for positive identification. Bed in low position. Call em light in reach. Side rails up X2. Pulse ox on. NIBP on. 18:30 Inserted saline lock: 20 gauge in right forearm, using aseptic technique. Blood em collected. 18:30 Initial lab(s) drawn, by me, sent to lab. First set of blood cultures drawn by me. em 18:43 CT Abd/Pelvis - IV Contrast Only In Process Unspecified. EDMS 18:45 Second set of blood cultures drawn by me. em 19:54 Alma Aleman MD is Hospitalizing Provider. kb 20:24 No provider procedures requiring assistance completed. IV is patent, with fluids rv infusing freely, Patient admitted, IV remains in place. Administered Medications: 18:32 Drug: NS 0.9% 1000 ml Route: IV; Rate: 1000 ml; Site: right forearm; em 20:09 Follow up: IV Status: Completed infusion; IV Intake: 1000ml rv 18:32 Drug: Zofran (Ondansetron) 4 mg Route: IVP; Site: right forearm; em 20:09 Follow up: Response: No adverse reaction rv 18:34 Drug: morphine 4 mg Route: IVP; Site: right forearm; em 20:08 Follow up: Response: No adverse reaction; Marked relief of symptoms; RASS: Alert and rv Calm (0) 20:00 Drug: Zosyn 3.375 grams Route: IVPB; Infused Over: 60 mins; Site: right forearm; rv 20:24 Follow up: IV Status: Infusion continued upon admission rv 20:08 Drug: NS 0.9% 1000 ml Route: IV; Rate: 125 ml/hr; Site: right forearm; rv 20:24 Follow up: IV Status: Infusion continued upon admission rv Intake: 20:09 IV: 1000ml; Total: 1000ml. rv Outcome: 19:54 Decision to Hospitalize by Provider. kb 20:24 Admitted to OR accompanied by nurse, via stretcher, with chart, Report called to rv ML RIVERO 20:24 Condition: stable 20:24 Instructed on the need for admit, SURGERY 20:25 Patient left the ED. rv Signatures: Dispatcher [employer] EDMS Tracey De La Paz, DOLLY QUINTERO-Jim Le RN RN em Radha Deal Shelby, RN RN Chava, Jules, RN RN rv
[2019-11-07 20:00] LABS: Urine Blood NEGATIVE (NEG); Urine Glucose NEGATIVE (NEG); Urine Protein 1+ (NEG); Urine Specific Gravity >1.030 (1.005-1.030); Urine pH 5.5 (5.0-7.0)
[2019-11-07] MEDS ORDERED: PIPER/TAZO/NS 3.375gm 3.375 GM/100 ML BAG ONE (20:08)
[2019-11-07] MEDS ORDERED: MIDAZOLAM HCL 2 MG/2 ML INJ ONE (20:37)
[2019-11-07] MEDS ORDERED: GLYCOPYRROLATE 0.2 MG/ML SYR ONE (20:38)
[2019-11-07] MEDS ORDERED: FENTANYL CITR 100 MCG/2 ML ONE (20:38)
[2019-11-07] MEDS ORDERED: MORPHINE 10 MG/ML VIAL ONE (20:39)
[2019-11-07] MEDS ORDERED: KETOROLAC 30 MG/ML INJ ONE (20:39)
[2019-11-07] MEDS ORDERED: ROCURONIUM 50 MG/5 ML VIAL IV ONE ×2 (20:39→20:41)
[2019-11-07] MEDS ORDERED: NEOSTIGMINE 1 MG/ML -5 ML ONE (20:39)
[2019-11-07] MEDS ORDERED: dexAMETHasone 4 MG/ML VIAL ONE (20:39)
[2019-11-07] MEDS ORDERED: propofoL 200 MG/20 ML VIAL IV ONE (20:40)
[2019-11-07] MEDS ORDERED: LIDOCAINE 1% MPF 5 ML VIAL ONE (20:41)
--- NOTE | 2019-11-07 20:41 | P.HP ---
Certification for Inpatient With expected LOS: >2 Midnights Patient will require the following post-hospital care: None Practitioner: I am a practitioner with admitting privileges, knowledge of patient current condition, hospital course, and medical plan of care. Services: Services provided to patient in accordance with Admission requirements found in Title 42 Section 412.3 of the Code of Federal Regulations <Osei Saleem - Last Filed: 11/07/19 20:36> Patient History Date of Service: 11/07/19 Reason for admission: Perforated bowel History of Present Illness: 44-year-old male with a past medical history of hypertension and hyperlipidemia who was seen earlier in the week for her diverticulitis and was prescribed Cipro and Flagyl presents to the emergency room complaining of sudden onset of worsening abdominal pain that started around 3:00 p.m. this afternoon. Patient states he felt his stomach more distended, tender to touch and his pain increased to moderate with no improvement. In the emergency room patient is alert and oriented and not in distress He is pleasant and cooperative. His lab work shows a slightly elevated white cell count with a lactic acid of 1.8. Temperature of 98.3. Blood pressure of 94/59, pulse rate of 117, and a respiratory rate of 20. CT abdomen pelvis shows a bowel perforation pattern presumed to be at the site of recent sigmoid diverticulitis. There is a large volume of free intraperitoneal air. Surgery Dr Saldivar, was consulted and patient is scheduled for surgery in a few hr. Patient is agreeable. Patient will be placed in ICU after surgery and further evaluated. Home medications list reviewed: No - Past Medical/Surgical History -: Essential hypertension -: Hyperlipidemia -: Diverticulitis -: Toe amputation Psychosocial/ Personal History: Lives at home with - Family History Family History: Reviewed- Non-Contributory - Social History Smoking Status: Never smoker Alcohol use: No CD- Drugs: No Caffeine use: No Place of Residence: Home <CharleecarlosOsei prabhakar - Last Filed: 11/07/19 20:36> Date of Service: 11/08/19 <Franco Vanegas - Last Filed: 11/08/19 16:12> Allergies No Known Allergies Allergy (Verified 11/07/19 23:44) Review of Systems General: As per HPI Eyes: Unremarkable ENT: Unremarkable Respiratory: Unremarkable Cardiovascular: Unremarkable Gastrointestinal: Abdominal Pain, Distention, As per HPI Genitourinary: Unremarkable Integumentary: Unremarkable Neurological: Unremarkable Lymphatics: Unremarkable <Osei Saleem - Last Filed: 11/07/19 20:36> Physical Examination - Vital Signs Temperature: 98.3 F Blood Pressure: 94/59 Pulse: 117 Respirations: 20 Pulse Ox (%): 97 (RA) - Physical Exam General: Alert, In no apparent distress, Oriented x3 HEENT: Atraumatic, Normocephalic, PERRLA Neck: Supple, No Thyromegaly, Other (Trachea midline) Respiratory: Clear to auscultation bilaterally, Normal air movement Cardiovascular: No edema, Normal pulses, Normal S1 S2, Irregular heart rate/rhythm (Tachycardia) Capillary refill: <2 Seconds Gastrointestinal: Hypoactive, Rigidity, Distended, Tenderness Musculoskeletal: No clubbing, No swelling, No contractures, No erythema Integumentary: No rashes, No breakdown, No significant lesion, No tenderne ss/swelling Neurological: Normal gait, Normal speech, Normal strength at 5/5 x4 extr, Normal tone - Studies Laboratory Data (last 24 hrs) 11/07/19 18:30: WBC 13.8 H, Hgb 13.8, Hct 40.7, Plt Count 361 D 11/07/19 18:30: Sodium 136, Potassium 3.2 L, BUN 32 H, Creatinine 1.07, Glucose 165 H, Total Bilirubin 0.8, AST 14 L, ALT 17, Alkaline Phosphatase 62, Lipase 82 <Osei Saleem - Last Filed: 11/07/19 20:36> - Studies Laboratory Data (last 24 hrs) 11/07/19 18:30: WBC 13.8 H, Hgb 13.8, Hct 40.7, Plt Count 361 D 11/07/19 18:30: Sodium 136, Potassium 3.2 L, BUN 32 H, Creatinine 1.07, Glucose 165 H, Total Bilirubin 0.8, AST 14 L, ALT 17, Alkaline Phosphatase 62, Lipase 82 <Franco Vanegas - Last Filed: 11/08/19 16:12> Assessment and Plan - Plan Impression: Perforated bowel complicated by recent history of diverticulitis: Essential hypertension: Hyperlipidemia: Plan: Perforated bowel complicated by recent history of diverticulitis: CT abdomen pelvis showed a perforated bowel. Surgery consulted Dr Saldivar. Patient is scheduled for surgical intervention in the next few hr. Will follow surgery recommendations. Patient will be admitted to ICU after surgery. Essential hypertension: Will order hydralazine 10 mg q.4 hr p.r.n. for systolic blood pressure greater than 160 and a diastolic blood pressure greater than 100. Will resume home medications once patient is able to tolerate p.o.. Hyperlipidemia: Will resume all medications once patient is able to tolerate p.o.. Discharge Plan: Home Plan to discharge in: Greater than 2 days - Advance Directives Does patient have a Living Will: No Does patient have a Durable POA for Healthcare: No - Code Status/Comfort Care Code Status Assessed: Yes Time Spent Managing Pts Care (In Minutes): 55 <Osei Saleem - Last Filed: 11/07/19 20:36> Physician Review Additional Text: I have discussed the plan of care for this patient with Osei Saleem, and I agree with the management as noted above. <Franco Vanegas - Last Filed: 11/08/19 16:12>
[2019-11-07] MEDS ORDERED: HYDRALAZINE HCL 20 MG/ML VIAL IV PRN (20:46)
[2019-11-07] MEDS ORDERED: NA CIT/CITRIC AC 30 ML ORAL UDC ONE (20:51)
[2019-11-07] MEDS ORDERED: Phenylephrine HCl 10 MG/ML 1 ML VIAL ONE (20:57)
--- NOTE | 2019-11-07 22:27 | P.OP ---
Fire Protection Engineer: Te ROSARIO Preoperative diagnosis: Perforated Sigmoid Diverticulitis, Abscess x 2 in Pelvis Postoperative diagnosis: Same Primary procedure: Exp Lap, JORGE LUIS, Drainage of Intraabdominal Abscess x 2, Woods's Procedure Secondary procedure: (Sigmoid Rsxn with Colostomy) Anesthesia: General Estimated blood loss: Minimal Specimen: C&S, Sigmoid Colon Findings: as above Complications: None Drain(s): Nasogastric, Urinary catheter, DEANA drain Transferred to: Recovery Room Condition: Good
[2019-11-07] MEDS: HYDROMORPHONE HCL 1 MG/ML INJ ONE ×4 (22:41→23:00)
[2019-11-07] MEDS ORDERED: SODIUM CHLORIDE 0.9% 10ML INJ IV PRN (22:42)
[2019-11-07 23:27] VITALS: BMI 24.5
[2019-11-07] MEDS: D5.45NS W/KCL 20MEQ 1,000 ML IV SCH (23:27)
[2019-11-07] MEDS: HYDROMORPHONE HCL 1 MG/ML INJ IV PRN (23:28)
[2019-11-07] MEDS ORDERED: D5 0.45 NS 0 ML IV ONE (23:31)
[2019-11-07] MEDS ORDERED: HYDROMORPHONE HCL 1 MG/ML INJ ONE (23:31)
[2019-11-07] MEDS ORDERED: D5.45NS W/KCL 20MEQ 1,000 ML IV ONE (23:33)
--- NOTE | 2019-11-07 23:38 | PREOPCON ---
Date of Consultation: 11/07/2019 Chief Complaint: Abdominal pain. History Of Present Illness: The patient is a 44-year-old gentleman, who presented to the emergency r oom about a week ago with acute abdominal pain with diagnosis of uncomplicated sigmoid diverticulitis and was discharged with oral antibiotics. He was doing well up until today at 3 o'clock, had acute onset of severe abdominal pain, nausea, but no vomiting. Some loose bowel movement, but no diarrhea or constipation. No blood in his stool. No dysuria or hematuria. No sore throat, runny nose, cough , headaches, or dizziness. No chest pain. Low-grade fevers. Review of Systems: Otherwise unremarkable. Past Medical History: Significant for hypertension, hyperlipidemia. Past Surgical History: Significant for toe surgery. Allergies: NO ALLERGIES. Social History: The patient denies smoking or drinking. Family History: Negative for any colorectal malignancy or other significant disease except for lymph arnold in the back. Physical Examination: Vital Signs: On admission, blood pressure 92/63, pulse rate of 142, temperature of 98.3, temperature did go up to 99.9 at 6:58 p.m., however, the most recent vitals showed blood pressure of 101/66, pul se of 108, respirations of 18, and temperature of 99. General: He is awake, alert, and oriented x3. Head and Neck: Cranial nerves 2 through 12 grossly within normal limits. No neck masses. No JVD. Throat clear. Neck: Supple. Chest: Clear. Heart: S1, S2. Abdomen: Soft, distended. Hypoactive bowel sounds. Diffuse rebound with tenderness and rigidity. Involuntary guarding. Extremities: Adequately perfused. Nontender. Neurologic: Nonfocal. Diagnostic Studies: CT of the abdomen and pelvis reviewed, essentially the patient has bowel perfora tion pattern, presumed to be at the site of reason sigmoid diverticulitis; large volume of free intra peritoneal air. There is 2 small abscess or collection present, midline and left lower pelvis, large st is 5 x 4 cm. Multiple dilated small bowel loops are present. Multiple transition points of prese nt, possibly inflammatory adhesions. Small bowel pattern could be obstruction, ileus, or combination . His laboratory data reviewed. White count today is 13.8 with a left shift, H and H are 13.8 and 4 0.7. Electrolytes reviewed. He had slight hypokalemia. He is not acidotic. He is dehydrated. His lactic acid is 1.8 and his procalcitonin is 0.86. Assessment: A 44-year-old gentleman with acute perforated diverticulitis with abscess x2. Recommendations: Admit n.p.o., IV fluid, IV antibiotic, to the OR for exploratory laparotomy, bowel resection, colostomy, and drainage of intraabdominal abscess x2. The patient understands the risks, benefits, and alternatives, and agrees to procedure. /MODL Voice ID: [id number] Report ID: [id number]
[2019-11-08] MEDS ORDERED: PIPER/TAZO/NS 3.375gm 3.375 GM/100 ML BAG ONE ×4 (01:33→23:58)
[2019-11-08] MEDS ORDERED: HYDROMORPHONE HCL 1 MG/ML INJ ONE ×8 (01:34→23:58)
[2019-11-08] MEDS: HYDROMORPHONE HCL 1 MG/ML INJ IV PRN ×8 (01:35→23:55)
[2019-11-08] MEDS: PIPER/TAZO/NS 3.375gm 3.375 GM/100 ML BAG IVPB SCH ×3 (02:00→17:40)
--- NOTE | 2019-11-08 02:39 | OP ---
Date of Procedure: 11/07/2019 Surgeon: Thierry Saldivar MD Plate Furnace Operator: ABRAHAM Lebron Preoperative Diagnoses: Perforated acute sigmoid diverticulitis with pelvic abscess x2. Postoperative Diagnoses: Perforated acute sigmoid diverticulitis with pelvic abscess x2 with adhesio ns. Procedures Performed: Exploratory laparotomy, lysis of adhesions, drainage of abdominal abscess x2, and sigmoid resection with colostomy, Demetrius's procedure. Estimated Blood Loss: Minimal. Specimens: Culture and sensitivity on the peritoneal fluid and sigmoid colon. Findings: As above. Anesthesia: General. Complications: None. Drains: DEANA #10 flat in the pelvis. Disposition: The patient tolerated the procedure in stable condition, taken to Recovery in good gene ral condition. Operative Note: The patient was brought to the OR, placed in supine position, general anesthesia beg un. The patient was prepped and draped in usual sterile fashion. A 20 blade was used to open the mi dline incision above the umbilicus to the pubis. Subcutaneous tissue was divided. Fascia was identi fied and divided. Peritoneal cavity was entered with sharp and blunt dissection. Free air evacuated . Pus encountered. Foul odor encountered. Two abscesses encountered, which were all aspirated, cul tures were done. The entire peritoneal cavity was irrigated thoroughly until all of the purulence wa s cleaned out and the fluid was clear. There was some fibrinous exudate in the small bowel and the s mall bowel was dilated and had points of partial obstruction, which was released secondary to adhesio ns and then the entire exploratory laparotomy revealed normal GE junction, normal stomach, normal duo denal sweep. The jejunum was dilated, however, there was no acute evidence of any disease present. Appendix, ileum, which was wrapped around the area where the perforation was in the sigmoid colon had some fibrinous exudate on it, which was debrided gently. The ascending colon, transverse colon, toro cending colon were within normal limits. The sigmoid colon was very indurated, hard, down to the rec tosigmoid junction. The white line of Toldt was mobilized and then a proximal part of the colon was divided with a KAYDEN stapling device. LigaSure was used to divide the mesocolon and then the rectosigm oid junction was divided with the contour stapling device. The specimen was removed. It was opened on the side table. No cancer was seen. It was just acute diverticulitis. Subsequently, entire abdo men was irrigated again, effluent was clear, and then the proximal colon with the descending colon wa s mobilized some more and then a 2 cm incision was made, circular in nature, in the left middle quadr ant. Subcutaneous tissue was excised. Fascia was identified. An incision was made and then the col ostomy was pulled through and then DEANA drain was placed in the pelvis as there was an abscess cavity p resent over there and secured with 3-0 nylon and then midline fascia was closed with a running #2 nyl on. Subcutaneous wounds irrigated. Bleeding controlled with cautery. Fanshawe were used to close th e skin. Sterile dressing was applied and then the colostomy was matured in the standard fashion with 3-0 chromic clockwise in nature. Digital exam of the colostomy revealed no obstruction and healthy mucosa was present. Sterile dressing was applied. The patient was awakened and taken to Recovery in good general condition. /MODL Voice ID: [id number] Report ID: [id number]
[2019-11-08 03:18] LABS: Urine Appearance CLEAR; Urine Blood NEGATIVE (NEG); Urine Color DK YELLOW; Urine Glucose NEGATIVE (NEG); Urine Protein 1+ (NEG); Urine Specific Gravity >=1.030 (1.005-1.030); Urine Urobilinogen 0.2 mg/dL (0.2-1.0); Urine pH 5.5 (5.0-7.0)
[2019-11-08 03:41] LABS: Urine Microscopic Reflex ORDER UMIC
[2019-11-08 03:42] LABS: Urine Bilirubin NEGATIVE (NEG)
[2019-11-08 04:44] LABS: Absolute Lymphocytes (CBC) 0.3 K/uL (0.7-4.9); Basophils % 0.1 % (0-1.3); Hematocrit 39.9 % (39.6-49.0); MPV 7.3 fL (7.6-11.3); RBC Red Blood Cell Count 4.39 M/uL (4.33-5.43)
[2019-11-08 04:52] LABS: Urine Bacteria <20 /HPF (NONE SEEN); Urine Mucus 1+ /HPF (NONE SEEN); Urine RBC <5 /HPF (NONE SEEN)
[2019-11-08 04:53] LABS: Urine Culture Reflex Order REFLEXED; Urine Urothelial Cells <5 /HPF (NONE SEEN)
[2019-11-08 04:59] LABS: Albumin 2.3 g/dL (3.4-5.0); Bilirubin Total 0.7 mg/dL (0.2-1.0); Magnesium 1.9 mg/dL (1.8-2.4); Phosphorus 4.3 mg/dL (2.5-4.9); Potassium 4.5 mmol/L (3.5-5.1); Protein, Total 5.8 g/dL (6.4-8.2)
[2019-11-08 05:30] LABS: Blood Morphology Comment NOT SEEN (NOT SEEN); Platelet Estimate ADEQ
[2019-11-08] MEDS: D5.45NS W/KCL 20MEQ 1,000 ML IV SCH ×3 (07:34→23:00)
[2019-11-08] MEDS ORDERED: D5.45NS W/KCL 20MEQ 1,000 ML IV ONE ×3 (07:40→20:19)
[2019-11-08] MEDS: PANTOPRAZOLE 40 MG INJ IVP SCH (09:51)
[2019-11-08] MEDS: ENOXAPARIN 40 MG/0.4 ML SQ SCH (09:51)
[2019-11-08] MEDS ORDERED: PANTOPRAZOLE 40 MG INJ ONE (09:57)
[2019-11-08] MEDS ORDERED: ENOXAPARIN 40 MG/0.4 ML SQ ONE (09:58)
--- NOTE | 2019-11-08 10:00 | PN ---
Date of Progress Note: 11/08/2019 Subjective: The patient is awake and alert. Pain is controlled on parenteral pain management. Urin e output is adequate. Laboratory Data: Reviewed. His white count is elevated with a left shift, which is expected. Objective: Vital Signs: However are very stable. He is afebrile. General: He is awake and alert. Head and Neck: No masses. Chest: Clear. Heart: S1, S2. Abdomen: Soft. Hypoactive bowel sounds. Minimal incisional tenderness. No peritonitis. Colostomy is pink, edematous. Assessment: Status post exploratory laparotomy, lysis of adhesions, drainage of intraabdominal absce ss and Demetrius's procedure. Recommendations: Continue n.p.o., NG tube. We will discontinue the Méndez later in the day once ninfa ent is mobilized by Physical Therapy. Continue IV antibiotics. DVT prophylaxis. Patient is clinica lly stable. Doing well. /MODL Voice ID: [id number] Report ID: [id number]
--- NOTE | 2019-11-08 16:19 | P.PN ---
Subjective Date of Service: 11/08/19 Chief Complaint: Perforated bowel patient reports feeling ok this morning. Reports adequate pain control, breathing comfortably, denies chest pain NGT in place and slightly bothering him, otherwise without complaints Review of Systems 10-point ROS is otherwise unremarkable Physical Examination - Vital Signs Temperature: 98.1 F Blood Pressure: 117/53 Pulse: 99 Respirations: 18 Pulse Ox (%): 99 - Physical Exam General: Alert, In no apparent distress HEENT: Other (NGT in place to LIWS) Respiratory: Clear to auscultation bilaterally, Normal air movement Cardiovascular: No edema, Regular rate/rhythm, Normal S1 S2 Gastrointestinal: Hypoactive, Tenderness (mild) Musculoskeletal: No erythema, No tenderness Integumentary: No rashes Neurological: Normal speech, Normal affect - Studies Laboratory Data (last 24 hrs) 11/07/19 18:30: WBC 13.8 H, Hgb 13.8, Hct 40.7, Plt Count 361 D 11/07/19 18:30: Sodium 136, Potassium 3.2 L, BUN 32 H, Creatinine 1.07, Glucose 165 H, Total Bilirubin 0.8, AST 14 L, ALT 17, Alkaline Phosphatase 62, Lipase 82 Assessment & Plan Physician Review Additional Text: Perforated bowel complicated by recent history of sigmoid diverticulitis Essential hypertension Hyperlipidemia Perforated bowel complicated by recent history of sigmoid diverticulitis: -CT abdomen pelvis:perforated bowel. now s/p ex-lap, JORGE LUIS, drainage of intrabdominal abscess x2, Woods's procedure -ostomy appears good, no gas/stool yet -NGT in place, incentive spirometer, SCDs -surgery following -pain control -continue zosyn -likely transfer out of ICU tomorrow Essential hypertension: -normotensive for now, can resume home meds once tolerating PO Hyperlipidemia: -Will resume all medications once patient is able to tolerate PO Time Spent Managing Pts Care (In Minutes): 35
[2019-11-09] MEDS: D5.45NS W/KCL 20MEQ 1,000 ML IV SCH ×3 (02:52→22:49)
[2019-11-09 04:39] LABS: Absolute Lymphocytes (CBC) 0.8 K/uL (0.7-4.9); Hematocrit 35.8 % (39.6-49.0); Lymphocytes % 4.1 % (15.3-44.8); MPV 7.2 fL (7.6-11.3); RBC Red Blood Cell Count 3.94 M/uL (4.33-5.43)
[2019-11-09 05:04] LABS: Albumin 2.2 g/dL (3.4-5.0); Bilirubin Total 0.3 mg/dL (0.2-1.0); Potassium 4.2 mmol/L (3.5-5.1); Protein, Total 5.8 g/dL (6.4-8.2)
[2019-11-09] MEDS: HYDROMORPHONE HCL 1 MG/ML INJ IV PRN ×4 (06:14→19:49)
[2019-11-09] MEDS ORDERED: HYDROMORPHONE HCL 1 MG/ML INJ ONE ×4 (06:23→19:55)
[2019-11-09] MEDS: PANTOPRAZOLE 40 MG INJ IVP SCH (08:34)
[2019-11-09] MEDS: ENOXAPARIN 40 MG/0.4 ML SQ SCH (08:34)
[2019-11-09] MEDS ORDERED: PANTOPRAZOLE 40 MG INJ ONE (08:43)
[2019-11-09] MEDS ORDERED: ENOXAPARIN 40 MG/0.4 ML SQ ONE (08:44)
[2019-11-09] MEDS: PIPER/TAZO/NS 3.375gm 3.375 GM/100 ML BAG IVPB SCH ×3 (09:10→16:38)
[2019-11-09] MEDS ORDERED: PIPER/TAZO/NS 3.375gm 3.375 GM/100 ML BAG ONE ×2 (09:16→16:47)
[2019-11-09] MEDS ORDERED: NS KCL 20MEQ 1,000 ML IV ONE (11:33)
[2019-11-09] MEDS ORDERED: D5.45NS W/KCL 20MEQ 1,000 ML IV ONE ×2 (11:42→19:54)
--- NOTE | 2019-11-09 12:25 | PN ---
Date of Progress Note: 11/09/2019 Subjective: Patient is awake, alert, bezoar, feels trying of his bowels but no gas with the colostom y yet. Objective: Vital Signs: Stable, afebrile. Abdomen: Benign with hypoactive bowel sounds. No air or stool in the colostomy bag. Mucosa is pink and edematous. Laboratory Data: White count is down to 19,000. Electrolytes reviewed. Assessment: Status post Demetrius's procedure and drainage of intraabdominal abscess. Recommendations: Continue IV antibiotics. NG tube ambulation. DVT prophylaxis. We will give colos glenna teaching and dietary consultation for diverticulitis diet and transfer the patient to a regular floor. Patient is clinically doing well. /MODL Voice ID: [id number] Report ID: [id number]
--- NOTE | 2019-11-09 19:01 | P.PN ---
Subjective Date of Service: 11/09/19 Chief Complaint: Perforated bowel patient reports feeling ok this morning. Reports adequate pain control, breathing comfortably, denies chest pain NGT slightly bothersome, abdominal pain getting sore Review of Systems 10-point ROS is otherwise unremarkable Physical Examination - Vital Signs Temperature: 98.7 F Blood Pressure: 121/80 Pulse: 91 Respirations: 23 Pulse Ox (%): 96 - Physical Exam General: Alert, In no apparent distress HEENT: Mucous membr. moist/pink Respiratory: Clear to auscultation bilaterally, Normal air movement Cardiovascular: No edema, Regular rate/rhythm, Normal S1 S2 Gastrointestinal: Soft and benign, Non-distended, Other (ostomy bag with slight serosanguinous fluid) Musculoskeletal: No tenderness Integumentary: No rashes, No breakdown Neurological: Normal speech, Normal affect Assessment & Plan Physician Review Additional Text: Perforated bowel complicated by recent history of sigmoid diverticulitis Essential hypertension Hyperlipidemia Perforated bowel complicated by recent history of sigmoid diverticulitis: -CT abdomen pelvis:perforated bowel. now s/p ex-lap, JORGE LUIS, drainage of intrabdominal abscess x2, Woods's procedure -ostomy appears good, no gas/stool yet -NGT in place, incentive spirometer, SCDs -beth removed, voiding without issue -surgery following -pain control -continue zosyn -transfer out of ICU today per surgery Essential hypertension: -normotensive for now, can resume home meds once tolerating PO Hyperlipidemia: -Will resume all medications once patient is able to tolerate PO Time Spent Managing Pts Care (In Minutes): 25
[2019-11-10] MEDS: HYDROMORPHONE HCL 1 MG/ML INJ IV PRN ×5 (00:06→22:41)
[2019-11-10] MEDS ORDERED: HYDROMORPHONE HCL 1 MG/ML INJ ONE ×5 (00:13→22:51)
[2019-11-10] MEDS: PIPER/TAZO/NS 3.375gm 3.375 GM/100 ML BAG IVPB SCH (00:14)
[2019-11-10] MEDS ORDERED: PIPER/TAZO/NS 3.375gm 3.375 GM/100 ML BAG ONE (00:23)
[2019-11-10 04:54] LABS: Absolute Lymphocytes (CBC) 0.8 K/uL (0.7-4.9); Basophils % 0.1 % (0-1.3); Hematocrit 36.7 % (39.6-49.0); Lymphocytes % 5.1 % (15.3-44.8); MPV 6.9 fL (7.6-11.3); RBC Red Blood Cell Count 4.02 M/uL (4.33-5.43)
[2019-11-10 05:02] LABS: BUN Blood Urea Nitrogen 18 mg/dL (7-18); Bicarbonate 30 mmol/L (21-32); Glucose Level 118 mg/dL (74-106); Magnesium 2.1 mg/dL (1.8-2.4); Phosphorus 2.5 mg/dL (2.5-4.9); Potassium 3.9 mmol/L (3.5-5.1); Sodium Level 142 mmol/L (136-145)
[2019-11-10] MEDS: D5.45NS W/KCL 20MEQ 1,000 ML IV SCH ×2 (05:57→16:25)
[2019-11-10] MEDS ORDERED: D5.45NS W/KCL 20MEQ 1,000 ML IV ONE ×2 (06:06→14:50)
[2019-11-10] MEDS: Meropenem 1,000 MG in NA CHLORIDE 0.9% 100 ML IV SCH ×2 (09:00→17:00)
[2019-11-10] MEDS ORDERED: Meropenem 1000 MG/VIAL IV SCH (09:00)
[2019-11-10] MEDS: ENOXAPARIN 40 MG/0.4 ML SQ SCH (09:18)
[2019-11-10] MEDS: PANTOPRAZOLE 40 MG INJ IVP SCH (09:18)
[2019-11-10] MEDS ORDERED: PANTOPRAZOLE 40 MG INJ ONE (09:26)
[2019-11-10] MEDS ORDERED: ENOXAPARIN 40 MG/0.4 ML SQ ONE (09:26)
--- NOTE | 2019-11-10 10:40 | PN ---
Date of Progress Note: 11/10/2019 Subjective: The patient is awake, alert, no complaint. No flatus or stool in the colostomy. Objective: Vital Signs: Stable, afebrile. Abdomen: Soft, slightly distended. Hypoactive bowel sounds. Dressing is clean, dry, and intact. O stomy is pink. Edematous. Laboratory Data: White count is coming down. The shift is improving. Cultures reviewed, E. coli, E SBL. Recommendation is meropenem, which has been started. Assessment: Status post Demetrius's procedure and drainage of an intraabdominal abscess x2. Recommendations: Meropenem as ordered. Dietary consultation for dietary modification. Ostomy, G-tu be. Wound care as ordered. Ambulation. Incentive spirometry. Patient is clinically stable and doi ng well. /MODL Voice ID: [id number] Report ID: [id number]
--- NOTE | 2019-11-10 14:51 | P.PN ---
Subjective Date of Service: 11/10/19 Chief Complaint: Perforated bowel patient reports feeling ok this morning. Reports adequate pain control, breathing comfortably, denies chest pain NGT slightly bothersome, abdominal pain improving Review of Systems 10-point ROS is otherwise unremarkable Physical Examination - Vital Signs Temperature: 98.6 F Blood Pressure: 128/80 Pulse: 90 Respirations: 18 Pulse Ox (%): 98 - Physical Exam General: Alert, In no apparent distress, Oriented x3 HEENT: EOMI, Sclerae nonicteric Neck: Supple, No LAD Respiratory: Clear to auscultation bilaterally, Normal air movement Cardiovascular: No edema, Regular rate/rhythm, Normal S1 S2 Gastrointestinal: Hypoactive, Soft and benign, Other (ostomy with serosanguinous fluid, no stool), Tenderness (mild throughout) Musculoskeletal: No tenderness Integumentary: No rashes, No breakdown Neurological: Normal speech, Normal affect Assessment & Plan Physician Review Additional Text: Perforated bowel complicated by recent history of sigmoid diverticulitis Essential hypertension Hyperlipidemia Perforated bowel complicated by recent history of sigmoid diverticulitis: -CT abdomen pelvis:perforated bowel. now s/p ex-lap, JORGE LUIS, drainage of intrabdominal abscess x2, Woods's procedure -ostomy appears good, no gas/stool yet -NGT in place to LITROY, incentive spirometer, SCDs -beth removed 11/08, voiding without issue -surgery following -pain control -surgical cultures growing ESBL - switch zosyn to meropenem (11/09) -transfer out of ICU Essential hypertension: -normotensive for now, can resume home meds once tolerating PO Hyperlipidemia: -Will resume all medications once patient is able to tolerate PO Diet: NPO, NGT VTE: SCDs Code: Full Dispo: anticipate DC home in ~>2 days Time Spent Managing Pts Care (In Minutes): 35
[2019-11-11] MEDS: Meropenem 1,000 MG in NA CHLORIDE 0.9% 100 ML IV SCH ×3 (00:52→16:43)
[2019-11-11] MEDS: D5.45NS W/KCL 20MEQ 1,000 ML IV SCH ×4 (00:55→22:25)
[2019-11-11 04:45] LABS: Hematocrit 34.2 % (39.6-49.0); MPV 7.1 fL (7.6-11.3); RBC Red Blood Cell Count 3.74 M/uL (4.33-5.43)
[2019-11-11 05:00] LABS: BUN Blood Urea Nitrogen 14 mg/dL (7-18); Bicarbonate 30 mmol/L (21-32); Glucose Level 114 mg/dL (74-106); Magnesium 1.8 mg/dL (1.8-2.4); Potassium 3.8 mmol/L (3.5-5.1); Sodium Level 141 mmol/L (136-145)
[2019-11-11] MEDS: HYDROMORPHONE HCL 1 MG/ML INJ IV PRN ×2 (08:44→18:36)
[2019-11-11] MEDS: PANTOPRAZOLE 40 MG INJ IVP SCH (08:44)
[2019-11-11] MEDS: ENOXAPARIN 40 MG/0.4 ML SQ SCH (08:44)
[2019-11-11] MEDS ORDERED: KCL 20 MEQ/100 mL IVPB 20 MEQ/100 ML BAG IV SCH (09:00)
--- NOTE | 2019-11-11 09:47 | P.PN ---
Subjective Date of Service: 11/11/19 Chief Complaint: Perforated bowel Subjective: No new changes, Other (Pain controlled well No fever no chills No acute events) Review of Systems 10-point ROS is otherwise unremarkable Physical Examination - Vital Signs Temperature: 98.4 F Blood Pressure: 140/86 Pulse: 97 Respirations: 18 Pulse Ox (%): 96 - Physical Exam General: Alert, In no apparent distress HEENT: Atraumatic, Normocephalic, Other (NG tube +) Neck: Supple Respiratory: Clear to auscultation bilaterally, Normal air movement Cardiovascular: Normal pulses, Regular rate/rhythm, Normal S1 S2 Capillary refill: <2 Seconds Gastrointestinal: Soft and benign, W/out hepatosplenomegaly, Other (Colostomy + ), Tenderness Musculoskeletal: No clubbing, No swelling Integumentary: No rashes, No tenderness/swelling Neurological: Normal speech, Normal strength at 5/5 x4 extr Lymphatics: No axilla or inguinal lymphadenopathy Assessment & Plan Physician Review Additional Text: Perforated bowel complicated by recent history of sigmoid diverticulitis Essential hypertension Hyperlipidemia Perforated bowel complicated by recent history of sigmoid diverticulitis: CT abdomen pelvis:perforated bowel. s/p ex-lap, JORGE LUIS, drainage of intrabdominal abscess x2, Woods's procedure Appreciate help from surgery ostomy , no gas/stool yet NGT in place to LIWS, incentive spirometer, SCDs pain control surgical cultures growing ESBL switch zosyn to meropenem (11/09) Continue meropenem Essential hypertension: normotensive for now, can resume home meds once tolerating PO PRN hydralazine Hyperlipidemia: -Will resume all medications once patient is able to tolerate PO Diet: NPO, NGT VTE: SCDs Code: Full Disposition : Advice ambulation Pain control surgical recommendations Needs to continue IV antibiotics for ESBL Time Spent Managing Pts Care (In Minutes): 42
[2019-11-11] MEDS: ONDANSETRON 4 MG/2 ML VIAL IV PRN (13:48)
--- NOTE | 2019-11-11 16:15 | PN ---
Date of Progress Note: 11/11/2019 Subjective: The patient is awake, alert, having flatus in his ostomy bag. No pain. Objective: Vital Signs: Stable, afebrile. Abdomen: Benign with positive bowel sounds. Laboratory Data: White count is down to 12,000. Assessment: Status post Demetrius's and drainage of intraabdominal abscess x2. Recommendations: Discontinue NG tube. Clear liquids. Colostomy training. Physical therapy. Incen tive spirometry. DVT prophylaxis. The patient is clinically doing well. Hopefully discharge in 48 hours. /MODL Voice ID: [id number] Report ID: [id number]
[2019-11-12] MEDS: Meropenem 1,000 MG in NA CHLORIDE 0.9% 100 ML IV SCH ×3 (00:08→16:14)
[2019-11-12] MEDS: D5.45NS W/KCL 20MEQ 1,000 ML IV SCH ×2 (04:15→16:17)
[2019-11-12] MEDS: HYDROMORPHONE HCL 1 MG/ML INJ IV PRN ×2 (04:59→16:14)
[2019-11-12 06:26] LABS: Absolute Lymphocytes (CBC) 0.8 K/uL (0.7-4.9); Basophils % 0.3 % (0-1.3); Hematocrit 34.4 % (39.6-49.0); Lymphocytes % 8.4 % (15.3-44.8); MPV 6.7 fL (7.6-11.3); RBC Red Blood Cell Count 3.77 M/uL (4.33-5.43)
[2019-11-12 06:53] LABS: BUN Blood Urea Nitrogen 12 mg/dL (7-18); Bicarbonate 30 mmol/L (21-32); Glucose Level 110 mg/dL (74-106); Magnesium 1.6 mg/dL (1.8-2.4); Potassium 3.8 mmol/L (3.5-5.1); Sodium Level 139 mmol/L (136-145)
[2019-11-12] MEDS: PANTOPRAZOLE 40 MG INJ IVP SCH (08:14)
[2019-11-12] MEDS: ENOXAPARIN 40 MG/0.4 ML SQ SCH (08:14)
[2019-11-12] MEDS ORDERED: POTASSIUM 25 MEQ EFFERV TAB PO ONE (09:00)
[2019-11-12] MEDS ORDERED: MAGNESIUM SULFATE 1 gm IVPB 1 GM/100 ML BAG IV ONE (09:00)
--- NOTE | 2019-11-12 09:31 | P.PN ---
Subjective Date of Service: 11/12/19 Chief Complaint: Perforated bowel Subjective: No new changes, Improving Review of Systems 10-point ROS is otherwise unremarkable Physical Examination - Vital Signs Temperature: 98.5 F Blood Pressure: 133/79 Pulse: 94 Respirations: 18 Pulse Ox (%): 96 - Physical Exam General: Alert, In no apparent distress HEENT: Atraumatic, Normocephalic Neck: Supple Respiratory: Clear to auscultation bilaterally Cardiovascular: Regular rate/rhythm, Normal S1 S2 Capillary refill: <2 Seconds Gastrointestinal: Soft and benign, Tenderness Musculoskeletal: No clubbing, No swelling Integumentary: No rashes, No breakdown Neurological: Normal speech, Normal strength at 5/5 x4 extr Lymphatics: No axilla or inguinal lymphadenopathy Assessment & Plan Physician Review Additional Text: Perforated bowel complicated by recent history of sigmoid diverticulitis Essential hypertension Hyperlipidemia Perforated bowel complicated by recent history of sigmoid diverticulitis: CT abdomen pelvis:perforated bowel. s/p ex-lap, JORGE LUIS, drainage of intrabdominal abscess x2, Woods's procedure Appreciate help from surgery pain control surgical cultures growing ESBL switch zosyn to meropenem (11/09) Continue meropenem advised ambulation Pain is controlled well Start on clear liquid diet, and advanced as tolerated Essential hypertension: normotensive for now, can resume home meds once tolerating PO PRN hydralazine Hyperlipidemia: -Will resume all medications once patient is able to tolerate PO Diet: Clear liquid diet VTE: SCDs Code: Full Disposition : Advice ambulation Pain control surgical recommendations Needs to continue IV antibiotics for ESBL Time Spent Managing Pts Care (In Minutes): 42
--- NOTE | 2019-11-12 15:01 | PN ---
Date of Progress Note: 11/12/2019 Subjective: The patient is awake, alert, tolerating clear liquids. Had a bowel movement in the osto my bag. Has occasional crampy pain, does not require parenteral pain medicine. Ambulating, feels a little weak. Objective: Vital Signs: Stable. Afebrile. Abdomen: Benign. Laboratory Data: White count is normal. Left shift is better. Assessment: Status post Demetrius procedure and drainage of intraabdominal abscess x2. We will take the drain out prior to discharge tomorrow. Continue IV antibiotics. Advance diet to a GI soft. Dec rease IV fluid to KVO. Colostomy teaching is underway. The patient is doing clinically well. Will be discharged tomorrow. /MODL Voice ID: [id number] Report ID: [id number]
[2019-11-12 22:00] VITALS: O2SAT 96
[2019-11-12] MEDS: ONDANSETRON 4 MG/2 ML VIAL IV PRN (22:10)
[2019-11-13] MEDS: Meropenem 1,000 MG in NA CHLORIDE 0.9% 100 ML IV SCH ×3 (00:06→16:05)
[2019-11-13] MEDS: HYDROMORPHONE HCL 1 MG/ML INJ IV PRN ×3 (00:07→22:43)
[2019-11-13 04:39] LABS: BUN Blood Urea Nitrogen 11 mg/dL (7-18); Bicarbonate 30 mmol/L (21-32); Glucose Level 90 mg/dL (74-106); Magnesium 2.1 mg/dL (1.8-2.4); Potassium 3.9 mmol/L (3.5-5.1); Sodium Level 140 mmol/L (136-145)
[2019-11-13] MEDS: PANTOPRAZOLE 40 MG INJ IVP SCH (08:18)
[2019-11-13] MEDS: ENOXAPARIN 40 MG/0.4 ML SQ SCH (08:18)
[2019-11-13] MEDS ORDERED: POTASSIUM CL SA 10 MEQ TAB PO ONE (09:00)
--- NOTE | 2019-11-13 12:29 | P.PN ---
Subjective Date of Service: 11/13/19 Chief Complaint: Perforated bowel Subjective: Improving ostomy with output, pain controlled, tolerating diet Review of Systems 10-point ROS is otherwise unremarkable Physical Examination - Vital Signs Temperature: 97.4 F Blood Pressure: 120/74 Pulse: 83 Respirations: 17 Pulse Ox (%): 97 - Physical Exam General: Alert, In no apparent distress HEENT: Mucous membr. moist/pink Respiratory: Clear to auscultation bilaterally, Normal air movement Cardiovascular: Regular rate/rhythm, Normal S1 S2 Gastrointestinal: Soft and benign, Tenderness (along surgical incision) Musculoskeletal: No erythema, No tenderness Integumentary: No rashes Neurological: Normal speech, Normal affect - Studies Microbiology Data (last 24 hrs): 11/07/19 18:45 Blood - Blood Aerobic Blood Culture - Final No growth in 5 days. 11/07/19 18:45 Blood - Blood Anaerobic Blood Culture - Final No growth in 5 days. 11/07/19 18:30 Blood - Blood Aerobic Blood Culture - Final No growth in 5 days. 11/07/19 18:30 Blood - Blood Anaerobic Blood Culture - Final No growth in 5 days. Assessment & Plan Physician Review Additional Text: Perforated bowel complicated by recent history of sigmoid diverticulitis Essential hypertension Hyperlipidemia Perforated bowel complicated by recent history of sigmoid diverticulitis: CT abdomen pelvis:perforated bowel. s/p ex-lap, JORGE LUIS, drainage of intrabdominal abscess x2, Woods's procedure pain control, surgical cultures growing ESBL switched zosyn to meropenem (11/09). Will need to complete 10-14 days PICC ordered, likely dc home tomorrow Essential hypertension: normotensive for now, will resume metoprolol, hold ARB for now Hyperlipidemia: -resumed statin Diet: soft diet VTE: SCDs Code: Full Disposition : PICC placement, will need ~7days of meropenem upon discharge, likely DC tomorrow Time Spent Managing Pts Care (In Minutes): 30
[2019-11-13] MEDS: D5.45NS W/KCL 20MEQ 1,000 ML IV SCH (16:04)
--- NOTE | 2019-11-13 16:53 | PN ---
Date of Progress Note: 11/13/2019 Subjective: The patient is awake, alert. No complaints. Tolerating diet. Objective: Vital Signs: Stable. Afebrile. Abdomen: Benign. Assessment: Status post Demetrius procedure and drainage of intraabdominal abscess with an ESBL Esche richia coli. Recommendations: The patient will need a PICC line and 10 days total of IV meropenem and that is monico ng arranged and as soon as that is arranged, the patient will be discharged to home. /MODL Voice ID: [id number] Report ID: [id number]
[2019-11-13] MEDS ORDERED: ATORVASTATIN 20 MG TAB PO SCH (21:00)
[2019-11-13] MEDS ORDERED: LIDOCAINE 1% MPF 5 ML VIAL ONE (21:49)
[2019-11-14] MEDS: Meropenem 1,000 MG in NA CHLORIDE 0.9% 100 ML IV SCH ×3 (00:24→16:00)
[2019-11-14 05:08] LABS: BUN Blood Urea Nitrogen 13 mg/dL (7-18); Bicarbonate 30 mmol/L (21-32); Glucose Level 96 mg/dL (74-106); Sodium Level 139 mmol/L (136-145)
[2019-11-14] MEDS: ENOXAPARIN 40 MG/0.4 ML SQ SCH (08:40)
[2019-11-14] MEDS: PANTOPRAZOLE 40 MG INJ IVP SCH (08:41)
[2019-11-14] MEDS: HYDROMORPHONE HCL 1 MG/ML INJ IV PRN ×2 (08:41→17:45)
[2019-11-14] MEDS ORDERED: METOPROLOL XL 25 MG TAB PO SCH (09:00)
--- NOTE | 2019-11-14 10:42 | P.DS ---
Admission Date: 11/07/19 Discharge Date: 11/14/19 Primary Care Provider: Dr. Jamie Mcbride Disposition: ROUTINE DISCHARGE Discharge Condition: GOOD Reason for Admission: Perforated bowel Consultations: General surgery-Dr. Saldivar Procedures: 11/07/19: Ex-lap, Sigmoid colon resection with colostomy lysis of adhesions, drainage of intra-abdominal abscess x2, Demetrius's procedure Problem list Sepsis secondary to Sigmoid diverticulitis complicated by perforation Essential hypertension. Hyperlipidemia Brief History of Present Illness: 44-year-old male with a past medical history of hypertension and hyperlipidemia who was seen earlier in the week for her diverticulitis and was prescribed Cipro and Flagyl presents to the emergency room complaining of sudden onset of worsening abdominal pain that started around 3:00 p.m. this afternoon. Patient states he felt his stomach more distended, tender to touch and his pain increased to moderate with no improvement. In the emergency room patient is alert and oriented and not in distress He is pleasant and cooperative. His lab work shows a slightly elevated white cell count with a lactic acid of 1.8. Temperature of 98.3. Blood pressure of 94/59, pulse rate of 117, and a respiratory rate of 20. CT abdomen pelvis shows a bowel perforation pattern presumed to be at the site of recent sigmoid diverticulitis. There is a large volume of free intraperitoneal air. Surgery Dr Saldivar, was consulted and patient is scheduled for surgery. Hospital Course: Briefly, patient was admitted for bowel perforation in setting of sigmoid diverticulitis. He was urgently taken to the operating room on 11/07/2019 where he underwent the above noted procedure. His postoperative course was uncomplicated. His surgical abscess culture grew back ESBL e.coli. He was treated with meropenem, and discharged with a PICC line (placed on 11/13/2019) to complete 7 more days of IV meropenem. On day of discharge, patient was tolerating a GI soft diet, pain was well controlled, and he was voiding without issue. Colostomy was functioning was gas and loose stool. Vital Signs/Physical Exam: Temp Pulse Resp BP Pulse Ox 97 F 89 18 117/71 98 11/14/19 08:00 11/14/19 08:41 11/14/19 09:11 11/14/19 08:41 11/14/19 09:11 General: Alert, In no apparent distress HEENT: Mucous membr. moist/pink, Sclerae nonicteric Neck: Supple, JVD not distended Respiratory: Clear to auscultation bilaterally, Normal air movement Cardiovascular: Regular rate/rhythm, Normal S1 S2 Gastrointestinal: Normal bowel sounds, Other (Functioning colostomy, +stool, + gas), Tenderness (Very mild around the incision site) Musculoskeletal: No erythema, No tenderness Integumentary: No rashes Neurological: Normal speech, Normal tone, Normal affect Laboratory Data at Discharge: WBC 9.2 K/uL (4.3-10.9) D 11/12/19 06:05 Hgb 11.9 g/dL (13.6-17.9) L 11/12/19 06:05 Hct 34.4 % (39.6-49.0) L 11/12/19 06:05 Plt Count 380 K/uL (152-406) 11/12/19 06:05 Sodium 139 mmol/L (136-145) 11/14/19 04:35 Potassium 4.0 mmol/L (3.5-5.1) 11/14/19 04:35 BUN 13 mg/dL (7-18) 11/14/19 04:35 Creatinine 0.68 mg/dL (0.55-1.3) 11/14/19 04:35 Glucose 96 mg/dL (74-106) 11/14/19 04:35 Phosphorus 2.5 mg/dL (2.5-4.9) 11/10/19 04:26 Magnesium 2.1 mg/dL (1.8-2.4) D 11/13/19 03:54 Total Bilirubin 0.3 mg/dL (0.2-1.0) 11/09/19 04:06 AST 15 U/L (15-37) 11/09/19 04:06 ALT 17 U/L (12-78) 11/09/19 04:06 Alkaline Phosphatase 54 U/L (45-117) 11/09/19 04:06 Lipase 82 U/L (73-393) 11/07/19 18:30 Home Medications: Acetaminophen with Codeine [Acetaminophen-Cod #3 Tablet] 1 tab PO Q6HP PRN 11/08/19 Atorvastatin Calcium [Lipitor*] 20 mg PO BEDTIME 11/08/19 Ibuprofen/Famotidine [Duexis 800-26.6 mg Tablet] 1 tab PO TIDP PRN 11/08/19 Irbesartan [Avapro*] 150 mg PO DAILY 11/08/19 Lactobacillus Rhamnosus GG [Culturelle] 1 cap PO DAILY 11/08/19 Metoprolol Succinate [Toprol Xl*] 25 mg PO DAILY 11/08/19 Ondansetron [Ondansetron Odt] 1 tab SL Q8HP PRN 11/08/19 Meropenem-0.9% Sodium Chloride [Meropenem-0.9% NaCl 1 Gram/50] 1 gm IV Q8HR 7 Days ml 11/14/19 New Medications: Meropenem-0.9% Sodium Chloride [Meropenem-0.9% NaCl 1 Gram/50] 1 gm IV Q8HR 7 Days ml Patient Discharge Instructions: Follow up with PCP within 1 week. Follow up with Dr. Saldivar in 1 week Diet: Regular Activity: No lifting more than 10 lbs Followup: Thierry Saldivar MD [ACTIVE - CAN ADMIT] - 1 Week (Call to make an appointment. ) Time spent managing pt's care (in minutes): 50
--- NOTE | 2019-11-14 13:15 | PN ---
Date of Progress Note: 11/14/2019 Subjective: Patient is awake, alert, no complaint. Tolerating diet. He had his PICC line placed. Objective: Vital Signs: stable. Afebrile. Abdomen: Benign. Ostomy is working well. Assessment: Status post Demetrius's procedure with drainage of intraabdominal abscess x2. Recommendation: As DEANA drain is putting minimal amount of fluid out, we will go ahead and discontinue the DEANA drain prior to discharge as well as discontinue every other staple. The patient will get col ostomy teaching instructions. He may require home health. He will need meropenem for another week b ecause of the E. coli with ESBL. Discharge instructions were given to the patient. He will follow u p with me in my office in 1 week. TERESO/RADHA Voice ID: [id number] Report ID: [id number]
[2019-11-14 16:45] VITALS: BP 128/79; TEMP 97.7
--- NOTE | 2019-11-14 17:08 | RAD REPORT ---
EXAM DESCRIPTION: RAD - Chest Single View - 11/13/2019 10:33 pm\ CLINICAL HISTORY: 44 years Male PICC line insertion TECHNIQUE: One view of the chest. COMPARISON: No prior exams provided for comparison. FINDINGS: There is a right-sided PICC line in place with its tip projecting over the distal SVC. The lungs are clear without focal consolidation, effusion, or pneumothorax. The cardiomediastinal rufus houette and central pulmonary vasculature are normal. No acute osseous abnormalities. IMPRESSION: No acute cardiopulmonary abnormalities. Electronically signed by: Shantell Pittman MD 11/13/2019 10:43 PM CDT Due to temporary technical issues with the PACS/Fluency reporting system, reports are being signed by the in house radiologist without review as a courtesy to ensure prompt reporting. The interpreting r adiologist is fully responsible for the content of the report.
== END 2019-11-14 18:34 | disposition home health service (06) | DRG 854 ==
LOC: ER 18:02 → ERHOLD 20:13 → 2ND 11-10 23:37
PROVIDERS: ADMIT Hospitalist; ATTEND Hospitalist
PROC: 0D1N0Z4 Bypass Sigmoid Colon to Cutaneous, Open Approach (ICD-10-PCS; 2019-11-07)
PROC: 0W9J00Z Drainage of Pelvic Cavity with Drainage Device, Open Approach (ICD-10-PCS; 2019-11-07)
PROC: 0DN80ZZ Release Small Intestine, Open Approach (ICD-10-PCS; 2019-11-07)
PROC: 0DTN0ZZ Resection of Sigmoid Colon, Open Approach (ICD-10-PCS; principal; 2019-11-07 21:00)
PROC: 02HV33Z Insertion of Infusion Device into Superior Vena Cava, Percutaneous Approach (ICD-10-PCS; 2019-11-13)
DX: A41.9 Sepsis, unspecified organism (principal); K57.20 Diverticulitis of large intestine with perforation and abscess without bleeding; Z16.12 Extended spectrum beta lactamase (ESBL) resistance; I10 Essential (primary) hypertension; E78.5 Hyperlipidemia, unspecified; K66.0 Peritoneal adhesions (postprocedural) (postinfection); B96.20 Unspecified Escherichia coli [E. coli] as the cause of diseases classified elsewhere; Z89.429 Acquired absence of other toe(s), unspecified side; Z20.828 Contact with and (suspected) exposure to other viral communicable diseases
CPT/HCPCS: 36415; 36569; 71045; 74177; 80048; 80053; 80076; 81003; 81015; 82565; 83605; 83690; 83735; 84100; 84145; 85025; 85027; 87040; 87070; 87075; 87077; 87086; 87088; 87186; 87205; 88305; 96361; 96365; 96375; 97116; 97161; 97530; 99251; 99285; C9113; J1170; J1650; J2185; J2250; J2370; J2405; J2543; J2704; J2710; J3010; J3475; J3480; J7030; J7799; Q9967; U0002

== ENCOUNTER 2020-01-22 07:52 | Day surgery (SDC) | payer BC ==
[2020-01-19 10:01] LABS: Absolute Lymphocytes (CBC) 1.2 K/uL (0.7-4.9); Basophils % 0.6 % (0-1.3); Hematocrit 42.5 % (39.6-49.0); MPV 7.2 fL (7.6-11.3)
[2020-01-19 10:16] LABS: Potassium 3.7 mmol/L (3.5-5.1)
--- OUTSIDE RECORDS SUMMARY | 2020-01-22 07:54 | XMS REPORT | Continuity of Care Document ---
:1975 Author Organization [employer] Care Team Providers Name Role Phone [employer] Unavailable Un available Problems Problem Status Onset [...] # Group 90 tab, 5 Refill(s), Pharmacy: [facility] [id number] irbesartan 150 150 mg = 1 Active MH mg oral tablet tab, PO, 018 Medical Daily, # 90 Group tab, 5 Refill(s), Pharmacy: [facility] [address] ubiquinone 100 100 mg = 1 Active MH mg oral capsule cap, PO, 018 Medical Daily, # 30 Group cap, 0 Refill(s) Melatonin 10 mg 10 mg = 1 Active MH oral capsule cap, PO, 018 Medical Bedtime, 0 Group Refill(s) multivitamin Daily, 0 Active MH Refill(s) 018 Medical Group [place]-3 oral 0 Refill(s) Active MH capsule 018 [...] Number For Provider Date Date Visit Outpatient [id number] JESSENIA CALVERT 04/13 [facility] Outpatient [id number] Jessenia Calvert 04/13 04/14 Primary /2017 [facility] Phone [phone] 04/14 04/16 Primary Message /2017 [facility] Phone [phone] 04/16 04/18 Primary Message /2017 [facility] Phone [phone] 04/16 04/18 Primary Message /2017 Medical Care [facility] Phone [phone] 07/05 07/07 Primary Message /2017 [facility] Outpatient [id number] JESSENIA CALVERT 07/06 Acti ve [facility] Outpatient [id number] Jessenia Calvert 07/06 07/07 Primary /2017 Medical Care [facility] Outpatient [id number] JESSENIA NEHAL 12/27 Acti ve [facility] Outpatient [id number] Jessenia Nehal 12/27 12/28 Primary /2017 [facility] Outpatient [id number] JESSENIA NEHAL 05/11 Acti ve [facility] Ambulatory [id number] Jessenia Nehal 05/11 05/11 Primary Pre-Reg /2018 [facility] Phone [phone] 05/11 05/13 Primary Message /2018 [facility] Procedures Procedure Code Date Perfomer Comments Source Miscellaneous [id number] 03/15/2013 Broken bone on Medi humphrey operations<sup>1</s left foot toe. G roup up> Amputation of [id number] 03/15/2009 Right foot Medical toe<sup>2</sup> Group Assessment [...]
[2020-01-22] MEDS ORDERED: Ringers Lactate 1,000 ML IV ONE (08:25)
[2020-01-22] MEDS ORDERED: propofoL 200 MG/20 ML VIAL IV ONE ×3 (09:28)
[2020-01-22] MEDS ORDERED: LIDOCAINE 1% MPF 5 ML VIAL ONE (09:28)
--- NOTE | 2020-01-22 09:54 | ENDO RPT ---
[address], [address] COLONOSCOPY PROCEDURE REPORT EXAM DATE: 01/22/2020 PATIENT NAME: Ector Mary MR #: [id number] BIRTHDATE: 1975 ATTENDING: Thierry Saldivar M.D. STATUS: outpatient ADMINISTRATIVE JUDGE: Earnestine Cannon RN and Ofelia Banegas CST INDICATIONS: The patient is a 44 yr old Male here for a colonoscopy due to diverticulitis PROCEDURE PERFORMED: Colonoscopy MEDICATIONS: Per Anesthesia. ESTIMATED BLOOD LOSS: None CONSENT: The patient understands the risks and benefits of the procedure and understands that these risks include, but are not limited to: sedation, allergic reaction, infection, perforation and/or bleeding. Alternative means of evaluation and treatment include, among others: physical exam, x-rays, and/or surgical intervention. The patient elects to proceed with this endoscopic procedure. DESCRIPTION OF PROCEDURE: During intra-op preparation period all mechanical medical equipment was checked for proper function. Hand hygiene and appropriate measures for infection prevention was taken. Procedure, possible complications, alternatives including, but not limited to possibility of bleeding, perforation, tear, infection, sepsis, need for surgery, need for blood transfusion, were explained to the patient. After the risks, benefits and alternatives of the procedure were thoroughly explained, Informed consent was verified, confirmed and timeout was successfully executed by the treatment team. The patient was placed in the left lateral position. A digital rectal exam was performed and revealed nodules on the prostate and A digital rectal exam was performed and revealed an enlarged prostate. After appropriate level of anesthesia, the scope was passed. The EC-[id number] ([id number]) endoscope was introduced through the anus and advanced to the cecum, which was identified by transillumination from the light source. The quality of the prep was good. The instrument was then slowly withdrawn as the colon was fully examined. Scope withdrawal time was 14 minutes. COLON FINDINGS: Moderate diverticulosis was noted throughout the entire examined colon. Proctitis. Retroflexed views revealed no abnormalities. The scope was then completely withdrawn from the patient and the procedure terminated. ADVERSE EVENTS: There were no complications. IMPRESSIONS: 1. Moderate diverticulosis was noted throughout the entire examined colon 2. Proctitis RECOMMENDATIONS: 1. follow-up: office 1 week(s) 2. increase dietary water 3. low residue diet 4. no seeds in diet RECALL: Return in 10 year(s) for Colonoscopy. Tiherry Saldivar M.D. eSigned: Thierry Saldivar M.D. 01/22/2020 9:53 AM cc: Jamie Mcbride M.D. CPT CODES: ICD9 CODES: 1. 600.1 Nodular prostate 2. 600.0 Hypertrophy (benign) of prostate PATIENT NAME: Ector Mary MR#: [id number]
[2020-01-22 10:06] VITALS: TEMP 97.5
[2020-01-22 10:07] VITALS: O2SAT 100
[2020-01-22 10:36] VITALS: BP 115/73
== END 2020-01-22 10:30 | disposition home or self-care (01) ==
LOC: OR 07:52
PROVIDERS: ATTEND Surgery
PROC: 0DJD8ZZ Inspection of Lower Intestinal Tract, Via Natural or Artificial Opening Endoscopic (ICD-10-PCS; principal; 2020-01-22 09:00)
DX: K57.90 Diverticulosis of intestine, part unspecified, without perforation or abscess without bleeding (principal); K62.89 Other specified diseases of anus and rectum; N40.0 Benign prostatic hyperplasia without lower urinary tract symptoms; I10 Essential (primary) hypertension; Z20.828 Contact with and (suspected) exposure to other viral communicable diseases
CPT/HCPCS: 85025; 80048; 36415 ×2; 45378; G0103; U0002; J2704 ×2; J7120

== ENCOUNTER 2020-02-12 07:30 | Inpatient (IN) | payer BC ==
--- OUTSIDE RECORDS SUMMARY | 2020-02-12 07:33 | XMS REPORT | Continuity of Care Document ---
:1975 Author Organization [employer] Care Team Providers Name Role Phone [employer] Unavailable Un available Problems Problem Status Onset [...] # Group 90 tab, 5 Refill(s), Pharmacy: [facility] [address] irbesartan 150 150 mg = 1 Active MH mg oral tablet tab, PO, 018 Medical Daily, # 90 Group tab, 5 Refill(s), Pharmacy: [facility] [address] ubiquinone 100 100 mg = 1 Active MH mg oral capsule cap, PO, 018 Medical Daily, # 30 Group cap, 0 Refill(s) Melatonin 10 mg 10 mg = 1 Active MH oral capsule cap, PO, 018 Medical Bedtime, 0 Group Refill(s) multivitamin Daily, 0 Active MH Refill(s) 018 Medical Group [place]-3 oral 0 Refill(s) Active MH capsule 018 [...] Number For Provider Date Date Visit Outpatient [id number] JESSENIA CALVERT 04/13 [facility] Outpatient [id number] Jessenia Calvert 04/13 04/14 Primary /2017 [facility] Phone [phone] 04/14 04/16 Primary Message /2017 [facility] Phone [phone] 04/16 04/18 Primary Message /2017 [facility] Phone [phone] 04/16 04/18 Primary Message /2017 Medical Care [facility] Phone [phone] 07/05 07/07 Primary Message /2017 [facility] Outpatient [id number] JESSENIA CALVERT 07/06 Acti ve [facility] Outpatient [id number] Jessenia Calvert 07/06 07/07 Primary /2017 Medical Care [facility] Outpatient [id number] JESSENIA NEHAL 12/27 Acti ve [facility] Outpatient [id number] Jessenia Nehal 12/27 12/28 Primary /2017 [facility] Outpatient [id number] JESSENIA NEHAL 05/11 Acti ve [facility] Ambulatory [id number] Jessenia Nehal 05/11 05/11 Primary Pre-Reg /2018 [facility] Phone [phone] 05/11 05/13 Primary Message /2018 [facility] Procedures Procedure Code Date Perfomer Comments Source Miscellaneous [id number] 03/15/2013 Broken bone on Medi humphrey operations<sup>1</s left foot toe. G roup up> Amputation of [id number] 03/15/2009 Right foot Medical toe<sup>2</sup> Group Assessment [...]
[2020-02-12] MEDS ORDERED: Ringers Lactate 1,000 ML IV ONE ×2 (08:07→09:52)
[2020-02-12] MEDS ORDERED: CEFOXITIN/SWI 1gm 1 GM/10 ML SYR ONE ×2 (08:08→15:17)
[2020-02-12] MEDS ORDERED: METRONIDAZOLE 500mg IVPB 500 MG/100 ML BAG IV ONE ×2 (08:08→15:17)
[2020-02-12] MEDS ORDERED: propofoL 200 MG/20 ML VIAL IV ONE (08:27)
[2020-02-12] MEDS ORDERED: MIDAZOLAM HCL 2 MG/2 ML INJ ONE (08:27)
[2020-02-12] MEDS ORDERED: LIDOCAINE 1% MPF 5 ML VIAL ONE (08:27)
[2020-02-12] MEDS ORDERED: FENTANYL CITR 250 MCG/5 ML ONE (08:27)
[2020-02-12] MEDS ORDERED: ROCURONIUM 50 MG/5 ML VIAL IV ONE ×2 (08:27→10:12)
[2020-02-12] MEDS ORDERED: ONDANSETRON 4 MG/2 ML VIAL ONE (09:13)
[2020-02-12] MEDS ORDERED: dexAMETHasone 10 MG/ML VIAL ONE (09:13)
[2020-02-12] MEDS ORDERED: KETOROLAC 30 MG/ML INJ ONE (09:19)
[2020-02-12] MEDS ORDERED: MORPHINE 10 MG/ML VIAL ONE (10:33)
[2020-02-12] MEDS ORDERED: GLYCOPYRROLATE 0.2 MG/ML SYR ONE (10:36)
[2020-02-12] MEDS ORDERED: NEOSTIGMINE 1 MG/ML -5 ML ONE (10:53)
[2020-02-12] MEDS: HYDROMORPHONE HCL 1 MG/ML INJ ONE ×5 (11:02→11:58)
[2020-02-12] MEDS: MEPERIDINE HCL 25 MG/ML SYR ONE ×2 (11:02→11:06)
--- NOTE | 2020-02-12 12:04 | OP ---
Date of Procedure: 02/12/2020 Surgeon: Thierry Saldivar MD In Room Dining Server: ABRAHMA Lebron. Preoperative Diagnosis: Status post Demetrius's procedure for perforated sigmoid diverticulitis. Postoperative Diagnosis: Status post Demetrius's procedure for perforated sigmoid diverticulitis with adhesions. Procedures Performed: Diagnostic laparoscopy, exploratory laparotomy, lysis of adhesions and reversal of colostomy. Estimated Blood Loss: Minimal. Specimen: Colostomy and the doughnuts from the anastomosis. Findings: As above. Anesthesia: General. Complications: None. Disposition: The patient tolerated the procedure in stable condition and taken to Recovery in good general condition. Procedure In Detail: Patient was brought to the OR and placed in supine position. General anesthesia was begun. Patient was prepped and draped in the usual sterile fashion in the low lithotomy position and then 2-0 silk used in running interlocking fashion to close the colostomy. Then sterile dressing was placed over the colostomy and then a 2 cm incision was made in the right upper quadrant. Subcutaneous tissue was divided. Fascia was identified and divided. #1 Vicryl stay suture was placed. Peritoneal cavity was entered with sharp and blunt dissection. A 12-mm trocar was placed into the peritoneal cavity under direct vision. Pneumoperitoneum was established and then one 5 mm trocar was placed in the lower midline over the previous scar and then laparoscopy revealed some omental adhesions where the colostomy was and adhesions in the pelvis. At this time, the midline incision was opened. Subcu tissue was divided. Fascia was identified and divided. Peritoneal cavity was entered and then exploratory laparotomy revealed normal GE junction. Normal stomach. Normal duodenal sweep. Normal small bowel. Normal colon and ascending colon, cecum, transverse colon, sigmoid colon. Into the colotomy, there were omental adhesions. There were some pelvic adhesions as well. All these were lysed with the ligature and then the Demetrius's pouch was identified. Then the colostomy was dissected from the skin and the fascia and reduced into the peritoneal cavity and the end of the colostomy was excised with TA 55, sent to Pathology. Then the colon was mobilized to do a tension-free anastomosis in the pelvis. It was a low anterior anastomosis. Subsequently, the pursestring was utilized and ESIS was used and a 29 mm EEA anvil was placed and secured and then the EEA was introduced through the anus and then a standard end-to-end anastomosis was performed Two healthy doughnuts were removed and this anastomosis was tested with insufflation of air and a pool of saline with no evidence of leak identified. Subsequently, entire abdomen was irrigated. Effluent was clear. No evidence of bleeding or bowel injury appreciated. Then #1 Prolene used to close the peritoneum where the colostomy was and also the fascia. Stay sutures were tied to each other to reapproximate the fascial defect in the right upper quadrant and then #2 nylon was used to close the midline fascia. Subcutaneus wounds were irrigated. Bleeding was controlled with cautery. 2-0 chromic was used to approximate subcutaneus tissue and payton used to close the skin. Sterile dressing was applied. Patient was awakened and taken to Recovery in good general condition. TERESO/RADHA Voice ID: [id number] Report ID: [id number] JESSICA
[2020-02-12] MEDS: D5 0.45 NS 1,000 ML IV SCH ×2 (13:00→21:40)
[2020-02-12] MEDS ORDERED: D5 0.45 NS 1,000 ML IV ONE (13:15)
[2020-02-12] MEDS: CEFOXITIN/SWI 1gm 1 GM/10 ML SYR IV SCH ×2 (15:00→22:13)
[2020-02-12] MEDS: METRONIDAZOLE 500mg IVPB 500 MG/100 ML BAG IV SCH ×2 (15:00→21:39)
[2020-02-12] MEDS ORDERED: NA CHLORIDE 0.9% 500 ML IV ONE (15:13)
[2020-02-12] MEDS ORDERED: NA CHLORIDE 0.9% 500 ML ONE (15:24)
[2020-02-12] MEDS: HYDROMORPHONE HCL 1 MG/ML INJ IV PRN ×2 (15:45→21:30)
[2020-02-12] MEDS ORDERED: HYDROMORPHONE HCL 1 MG/ML INJ ONE (15:58)
[2020-02-12] MEDS ORDERED: NA CHLORIDE 0.9% 500 ML IV SCH (17:00)
[2020-02-12] MEDS ORDERED: NA CHLORIDE 0.9% 500 ML IV PRN (17:00)
[2020-02-12 17:50] VITALS: BMI 23.8
[2020-02-12] MEDS: ONDANSETRON 4 MG/2 ML VIAL IV PRN (21:33)
[2020-02-12] MEDS: METOPROLOL XL 25 MG TAB PO SCH (21:39)
[2020-02-12] MEDS ORDERED: CEFOXITIN/SWI 1gm 2 GM/20 ML SYR ONE (22:04)
[2020-02-13] MEDS: METRONIDAZOLE 500mg IVPB 500 MG/100 ML BAG IV SCH (02:56)
[2020-02-13] MEDS: CEFOXITIN/SWI 1gm 1 GM/10 ML SYR IV SCH (02:57)
[2020-02-13] MEDS: ONDANSETRON 4 MG/2 ML VIAL IV PRN (03:08)
[2020-02-13] MEDS: HYDROMORPHONE HCL 1 MG/ML INJ IV PRN ×6 (03:08→23:44)
[2020-02-13] MEDS: D5 0.45 NS 1,000 ML IV SCH ×6 (05:00→23:44)
[2020-02-13 05:39] LABS: Absolute Lymphocytes (CBC) 0.5 K/uL (0.7-4.9); Basophils % 0.1 % (0-1.3); Hematocrit 38.4 % (39.6-49.0); Lymphocytes % 4.6 % (15.3-44.8); MPV 7.1 fL (7.6-11.3); RBC Red Blood Cell Count 4.27 M/uL (4.33-5.43)
[2020-02-13 05:57] LABS: Phosphorus 3.3 mg/dL (2.5-4.9); Potassium 4.4 mmol/L (3.5-5.1)
[2020-02-13 06:33] LABS: Blood Morphology Comment NOT SEEN (NOT SEEN); Platelet Estimate ADEQ
[2020-02-13] MEDS: PANTOPRAZOLE 40 MG INJ IV SCH (08:12)
[2020-02-13] MEDS: ENOXAPARIN 40 MG/0.4 ML SQ SCH (08:12)
[2020-02-13] MEDS: SODIUM CHLORIDE 0.9% 10ML INJ IV SCH (08:13)
[2020-02-13] MEDS ORDERED: SODIUM CHLORIDE 0.9% 10ML INJ IV SCH (09:00)
--- NOTE | 2020-02-13 11:50 | PN ---
Date of Progress Note: 02/13/2020 Subjective: The patient is awake, alert, no complaint. No flatus. Objective: Vital Signs: Stable, afebrile. : Urine output adequate. NG tube, minimal. Abdomen: Benign and soft with hypoactive bowel sounds. Dressing clean dry and intact. Laboratory Data: Reviewed. H and H 13.3, 38.4. Chemistry reviewed, essentially within normal limit s. Assessment: Status post reversal colostomy. Recommendations: Continue current management, n.p.o., NG tube, Méndez, parenteral pain management. E ncourage ambulation with physical therapy. Incentive spirometry. DVT prophylaxis. The patient clin ically doing well. /MODL Voice ID: [id number] Report ID: [id number]
[2020-02-13] MEDS: METOPROLOL XL 25 MG TAB PO SCH (20:18)
[2020-02-14] MEDS: ONDANSETRON 4 MG/2 ML VIAL IV PRN ×2 (05:06→22:03)
[2020-02-14] MEDS: HYDROMORPHONE HCL 1 MG/ML INJ IV PRN ×5 (05:08→22:01)
--- NOTE | 2020-02-14 08:43 | RAD REPORT ---
EXAM DESCRIPTION: RAD - Chest Single View - 02/14/2020 7:09 am CLINICAL HISTORY: NGT placement Chest pain. COMPARISON: Chest Single View dated 02/14/2020; Chest Single View dated 11/13/2019; Chest Single View dated 04/18/2016; Chest Pa And Lat (2 Views) dated 12/03/2015 FINDINGS: Portable technique limits examination quality. The enteric tube appears to be entering the stomach, however the tip is not included within the field -of-view.
[2020-02-14] MEDS: SODIUM CHLORIDE 0.9% 10ML INJ IV SCH (09:00)
[2020-02-14] MEDS: PANTOPRAZOLE 40 MG INJ IV SCH (09:00)
[2020-02-14] MEDS: ENOXAPARIN 40 MG/0.4 ML SQ SCH (09:00)
--- NOTE | 2020-02-14 10:05 | PN ---
Date of Progress Note: 02/14/2020 Subjective: The patient is awake, alert. NG tube came out a little bit, had to be put back in. He has some discomfort from that, otherwise there is no abdominal pain. He feels rumbling in his stomac h. He may have passed a little bit of gas, he is not sure. No bowel movements. His bowels are stab le. Afebrile. Urine output is adequate. Abdomen is benign with positive bowel sounds. Dressing is clean, dry, and intact. Assessment: Reversal colostomy. Recommendations: We will discontinue the Méndez. We will continue the NG tube for now. Put out 500 cc last night and we will encourage ambulation, DVT prophylaxis. Clinically patient is slowly improv ing. Hopefully NG tube out tomorrow and began some clear liquids. /MODL Voice ID: [id number] Report ID: [id number]
--- NOTE | 2020-02-14 12:27 | RAD REPORT ---
EXAM DESCRIPTION: XR Chest, 1 View CLINICAL HISTORY: The patient is 45 years old and is Male; Confirm NGT placement TECHNIQUE: Frontal view of the chest. COMPARISON: Chest radiograph November 13, 2019 FINDINGS: LUNGS: Unremarkable. No consolidation. PLEURAL SPACE: Unremarkable. No pneumothorax. HEART: Unremarkable. No cardiomegaly. MEDIASTINUM: Unremarkable. BONES/JOINTS: Unremarkable. TUBES, LINES AND DEVICES: An enteric tube is noted coursing beneath the level of the hemidiaphra gm, the tip is off the [id number]. IMPRESSION: An enteric tube is noted coursing beneath the level of the hemidiaphragm, the tip is off the [id number]. Electronically signed by: Madhuri Carlisle MD 02/14/2020 3:58 AM VOUCHER EXAMINER Due to temporary technical issues with the PACS/Fluency reporting system, reports are being signed by the in house radiologist without review as a courtesy to ensure prompt reporting. The interpreting r adiologist is fully responsible for the content of the report.
[2020-02-14] MEDS: D5 0.45 NS 1,000 ML IV SCH ×3 (15:53→23:03)
[2020-02-14] MEDS: METOPROLOL XL 25 MG TAB PO SCH (21:54)
[2020-02-15] MEDS: ONDANSETRON 4 MG/2 ML VIAL IV PRN (04:13)
[2020-02-15] MEDS: HYDROMORPHONE HCL 1 MG/ML INJ IV PRN ×4 (04:13→23:26)
[2020-02-15 06:15] LABS: Absolute Lymphocytes (CBC) 0.7 K/uL (0.7-4.9); Basophils % 0.2 % (0-1.3); Hematocrit 37.6 % (39.6-49.0); Lymphocytes % 9.3 % (15.3-44.8); MPV 7.4 fL (7.6-11.3); RBC Red Blood Cell Count 4.18 M/uL (4.33-5.43)
[2020-02-15 06:32] LABS: BUN Blood Urea Nitrogen 5 mg/dL (7-18); Bicarbonate 31 mmol/L (21-32); Glucose Level 118 mg/dL (74-106); Magnesium 1.7 mg/dL (1.8-2.4); Phosphorus 3.6 mg/dL (2.5-4.9); Potassium 3.3 mmol/L (3.5-5.1); Sodium Level 140 mmol/L (136-145)
[2020-02-15] MEDS: D5 0.45 NS 1,000 ML IV SCH ×3 (07:12→20:45)
[2020-02-15] MEDS: KCL 20 MEQ/100 mL IVPB 20 MEQ/100 ML BAG IV SCH ×2 (08:13→11:06)
[2020-02-15] MEDS: ENOXAPARIN 40 MG/0.4 ML SQ SCH (08:13)
[2020-02-15] MEDS: PANTOPRAZOLE 40 MG INJ IV SCH (08:13)
[2020-02-15] MEDS: SODIUM CHLORIDE 0.9% 10ML INJ IV SCH (08:14)
--- NOTE | 2020-02-15 11:40 | PN ---
Date of Progress Note: 02/15/2020 Subjective: The patient is awake, alert, passing flatus. No BM yet. Objective: Vital Signs: Stable, afebrile. Abdomen: Soft, nondistended, nontender. Positive bowel sounds. Laboratory Data: Reviewed. Everything is essentially unchanged. Potassium and magnesium were sligh tly low being replaced per protocol. Assessment: Status post reversal of colostomy. Recommendations: We will DC the NG tube and start clear liquids. Continue present management. The patient is clinically well and improving. /MODL Voice ID: [id number] Report ID: [id number]
[2020-02-15] MEDS ORDERED: MAGNESIUM SULFATE 1 gm IVPB 1 GM/100 ML BAG IV ONE (13:00)
[2020-02-15] MEDS: METOPROLOL XL 25 MG TAB PO SCH (20:44)
[2020-02-16] MEDS: ONDANSETRON 4 MG/2 ML VIAL IV PRN (01:00)
[2020-02-16] MEDS: D5 0.45 NS 1,000 ML IV SCH ×2 (04:53→09:30)
[2020-02-16 06:48] LABS: BUN Blood Urea Nitrogen 5 mg/dL (7-18); Bicarbonate 33 mmol/L (21-32); Glucose Level 102 mg/dL (74-106); Potassium 3.4 mmol/L (3.5-5.1); Sodium Level 141 mmol/L (136-145)
[2020-02-16] MEDS: ENOXAPARIN 40 MG/0.4 ML SQ SCH (08:24)
[2020-02-16] MEDS: PANTOPRAZOLE 40 MG INJ IV SCH (08:24)
[2020-02-16] MEDS: SODIUM CHLORIDE 0.9% 10ML INJ IV SCH (08:25)
[2020-02-16] MEDS ORDERED: POTASSIUM CL SA 10 MEQ TAB PO ONE ×2 (09:00→15:00)
[2020-02-16] MEDS: HYDROMORPHONE HCL 1 MG/ML INJ IV PRN ×2 (09:56→18:38)
[2020-02-16] MEDS: METOPROLOL XL 25 MG TAB PO SCH (20:45)
[2020-02-17] MEDS: HYDROMORPHONE HCL 1 MG/ML INJ IV PRN (00:21)
[2020-02-17] MEDS: ONDANSETRON 4 MG/2 ML VIAL IV PRN (00:21)
[2020-02-17 06:21] LABS: BUN Blood Urea Nitrogen 9 mg/dL (7-18); Bicarbonate 31 mmol/L (21-32); Glucose Level 99 mg/dL (74-106); Potassium 3.5 mmol/L (3.5-5.1); Sodium Level 142 mmol/L (136-145)
[2020-02-17] MEDS ORDERED: POTASSIUM CL SA 10 MEQ TAB PO ONE (06:36)
[2020-02-17] MEDS: PANTOPRAZOLE 40 MG INJ IV SCH (07:53)
[2020-02-17] MEDS: ENOXAPARIN 40 MG/0.4 ML SQ SCH (07:53)
[2020-02-17] MEDS: SODIUM CHLORIDE 0.9% 10ML INJ IV SCH (07:54)
[2020-02-17] MEDS: D5 0.45 NS 1,000 ML IV SCH (07:55)
[2020-02-17 09:23] VITALS: BP 131/78; TEMP 97.7
[2020-02-17 11:02] VITALS: O2SAT 98
--- NOTE | 2020-02-17 12:14 | DS ---
Date of Discharge: 02/17/2020 Admitting Diagnosis: Status post Demetrius's procedure for perforated sigmoid diverticulitis. Discharge Diagnosis: Status post Demetrius's procedure for perforated sigmoid diverticulitis. Procedures Performed: Diagnostic laparoscopy, exploratory laparotomy, reversal of colostomy. Hospital Course: The patient is a 45-year-old gentleman, who underwent the aforementioned procedure. Postoperatively, he did well. He was in the telemetry floor and monitored. Méndez was discontinued 48 hours after surgery after urine output was adequate, electrolytes were checked and corrected, sta rted having flatus and bowel movement. His diet was begun with liquids, advance as tolerated. NG tu be was discontinued. The patient is ambulating, pain controlled on p.o. pain medications, afebrile, tolerating diet; therefore, the patient will be discharged to home. Disposition: Home. Condition: Stable. Discharge Instructions: Resume home medications and diet. Activity as tolerated. No heavy lifting. May shower. Keep wound clean and dry. We will discontinue every other payton prior to discharge. The patient has Tylenol No. 3 for pain as needed. Follow up in my office in 1 week. Call for appo intment. /MODL Voice ID: [id number] Report ID: [id number]
== END 2020-02-17 13:06 | disposition home or self-care (01) | DRG 346 ==
LOC: OR 07:30 → 2ND 17:40
PROVIDERS: ADMIT Surgery; ATTEND Surgery
PROC: 0DSN0ZZ Reposition Sigmoid Colon, Open Approach (ICD-10-PCS; principal; 2020-02-12 08:30)
DX: Z43.3 Encounter for attention to colostomy (principal); Z89.422 Acquired absence of other left toe(s); Z20.828 Contact with and (suspected) exposure to other viral communicable diseases
CPT/HCPCS: 36415; 71045; 80048; 83735; 84100; 84132; 85025; 88304; 94010; 97116; 97161; 97530; C9113; J1100; J1170; J1650; J2175; J2250; J2405; J2704; J2710; J3010; J3475; J3480; J7040; J7120; J7799

== ENCOUNTER 2020-04-20 19:41 | Inpatient (IN) | payer BC ==
--- OUTSIDE RECORDS SUMMARY | 2020-04-20 19:43 | XMS REPORT | Continuity of Care Document ---
:1975 Author Organization [employer] Care Team Providers Name Role Phone [employer] Unavailable Un available Problems Problem Status Onset [...] # Group 90 tab, 5 Refill(s), Pharmacy: [facility] [address] irbesartan 150 150 mg = 1 Active MH mg oral tablet tab, PO, 018 Medical Daily, # 90 Group tab, 5 Refill(s), Pharmacy: [facility] [address] ubiquinone 100 100 mg = 1 Active MH mg oral capsule cap, PO, 018 Medical Daily, # 30 Group cap, 0 Refill(s) Melatonin 10 mg 10 mg = 1 Active MH oral capsule cap, PO, 018 Medical Bedtime, 0 Group Refill(s) multivitamin Daily, 0 Active MH Refill(s) 018 Medical Group [place]-3 oral 0 Refill(s) Active MH capsule 018 [...] Grou p Systolic (mm Hg) 136 07/06/2017 Medical Group Diastolic (mm Hg) 93 07/06/2017 [...] Number For Provider Date Date Visit Outpatient [id number] JESSENIA CALVERT 04/13 [facility] Outpatient [id number] Jessenia Calvert 04/13 04/14 Primary /2017 [facility] Phone [phone] 04/14 04/16 Primary Message /2017 [facility] Phone [phone] 04/16 04/18 Primary Message /2017 [facility] Phone [phone] 04/16 04/18 Primary Message /2017 [facility] Phone [phone] 07/05 07/07 Primary Message /2017 [facility] Outpatient [id number] JESSENIA CALVERT 07/06 Acti ve [facility] Outpatient [id number] Jessenia Calvert 07/06 07/07 Primary /2017 Medical Care [facility] Outpatient [id number] JESSENIA NEHAL 12/27 Acti ve [facility] Outpatient [id number] Jessenia Nehal 12/27 12/28 Primary /2017 Medical [facility] Outpatient [id number] JESSENIA NEHAL 05/11 Acti ve [facility] Ambulatory [id number] Jessenia Nehal 05/11 05/11 Primary Pre-Reg /2018 [facility] Phone [phone] 05/11 05/13 Primary Message /2018 [facility] Procedures Procedure Code Date Perfomer Comments Source Miscellaneous [id number] 03/15/2013 Broken bone on Medi humphrey operations<sup>1</s left foot toe. G roup up> Amputation of [id number] 03/15/2009 Right foot Medical toe<sup>2</sup> Group Assessment [...]
[2020-04-20] MEDS ORDERED: NA CHLORIDE 0.9% 1,000 ML ONE (20:21)
[2020-04-20] MEDS ORDERED: METOPROLOL TARTRATE 5 MG/5 ML INJ IV ONE ×2 (20:21→21:35)
[2020-04-20 20:51] LABS: Protime INR 1.3
[2020-04-20 20:53] LABS: Absolute Lymphocytes (CBC) 1.7 K/uL (0.7-4.9); Basophils % 0.4 % (0-1.3); Lymphocytes % 19.2 % (15.3-44.8); MPV 7.6 fL (7.6-11.3); RBC Red Blood Cell Count 4.76 M/uL (4.33-5.43)
[2020-04-20 21:13] LABS: ALT/SGPT 36 U/L (12-78); AST/SGOT 21 U/L (15-37); Albumin 4.2 g/dL (3.4-5.0); Alkaline Phosphatase 87 U/L (45-117); BUN Blood Urea Nitrogen 14 mg/dL (7-18); Bicarbonate 32 mmol/L (21-32); Bilirubin Direct 0.1 mg/dL (0-0.2); Bilirubin Total 0.4 mg/dL (0.2-1.0); Glucose Level 137 mg/dL (74-106); Magnesium 2.3 mg/dL (1.8-2.4); NT PRO-BNP 235 pg/mL (<125); Potassium 3.5 mmol/L (3.5-5.1); Protein, Total 7.6 g/dL (6.4-8.2); Sodium Level 146 mmol/L (136-145); Troponin (Emerg Dept Use Only) < 0.02 ng/mL (0.0-0.045)
--- NOTE | 2020-04-20 21:21 | EDPHYS ---
Physician Documentation [facility] Name: Ector Mary Age: 45 yrs Sex: Male : 1975 Arrival Date: 04/20/2020 Time: 19:43 Bed 14 Private MD: Jamie Mcbride ED Physician Yayo Lockhart HPI: 04/20 20:19 This 45 yrs old Male presents to ER via Ambulatory with complaints of heart mh7 rate >150 x5 hrs. 20:19 The patient presents with a history of irregular heart beat, heart racing. Context: The mh7 symptoms occur at rest. Onset: The symptoms/episode began/occurred today, at 15:00. 20:20 Duration: The patient or guardian reports a single episode, that is still ongoing. mh7 Modifying factors: The symptoms are aggravated by nothing. The symptoms are alleviated by nothing. 20:20 Associated signs and symptoms: Pertinent positives: lightheadedness, fatigue, Pertinent mh7 negatives: anxiety, chest pain, cough, fever, nausea, SOB, syncope, near-syncope, unusual stressors, vertigo, vomiting. Severity of symptoms: At their worst the symptoms were moderate today, in the emergency department the symptoms are unchanged. The patient has experienced similar episodes in the past, a few times. Historical: - Allergies: 20:17 No Known Allergies; ca1 - PMHx: 20:17 Hyperlipidemia; Hypertension; Atrial Fib; ca1 - PSHx: 20:17 toe amputation; ca1 - Immunization history:: Flu vaccine is up to date. - Social history:: Smoking status: Patient denies any tobacco usage or history of. ROS: 20:20 Constitutional: Negative for fever, chills, and weight loss, Eyes: Negative for injury, mh7 pain, redness, and discharge, ENT: Negative for injury, pain, and discharge, Neck: Negative for injury, pain, and swelling, Respiratory: Negative for shortness of breath, cough, wheezing, and pleuritic chest pain, Abdomen/GI: Negative for abdominal pain, nausea, vomiting, diarrhea, and constipation, Back: Negative for injury and pain, : Negative for injury, bleeding, discharge, and swelling, MS/Extremity: Negative for injury and deformity, Skin: Negative for injury, rash, and discoloration. 20:20 Psych: Negative for depression, anxiety, suicide ideation, homicidal ideation, and hallucinations, Allergy/Immunology: Negative for hives, rash, and allergies, Endocrine: Negative for neck swelling, polydipsia, polyuria, polyphagia, and marked weight changes, Hematologic/Lymphatic: Negative for swollen nodes, abnormal bleeding, and unusual bruising. 20:20 Neuro: Negative for altered mental status, gait disturbance, headache, hearing loss, loss of consciousness, numbness, seizure activity, speech changes, syncope, near syncope, tingling, tinnitus, tremor, visual changes, weakness. Exam: 20:20 Constitutional: This is a well developed, well nourished patient who is awake, alert, mh7 and in no acute distress. Head/Face: Normocephalic, atraumatic. Eyes: Pupils equal round and reactive to light, extra-ocular motions intact. Lids and lashes normal. Conjunctiva and sclera are non-icteric and not injected. Cornea within normal limits. Periorbital areas with no swelling, redness, or edema. Neck: Trachea midline, no thyromegaly or masses palpated, and no cervical lymphadenopathy. Supple, full range of motion without nuchal rigidity, or vertebral point tenderness. No Meningismus. Chest/axilla: Normal chest wall appearance and motion. Nontender with no deformity. No lesions are appreciated. 20:20 Respiratory: Lungs have equal breath sounds bilaterally, clear to auscultation and percussion. No rales, rhonchi or wheezes noted. No increased work of breathing, no retractions or nasal flaring. Abdomen/GI: Soft, non-tender, with normal bowel sounds. No distension or tympany. No guarding or rebound. No evidence of tenderness throughout. Back: No spinal tenderness. No costovertebral tenderness. Full range of motion. Skin: Warm, dry with normal turgor. Normal color with no rashes, no lesions, and no evidence of cellulitis. MS/ Extremity: Pulses equal, no cyanosis. Neurovascular intact. Full, normal range of motion. Neuro: Awake and alert, GCS 15, oriented to person, place, time, and situation. Cranial nerves II-XII grossly intact. Motor strength 5/5 in all extremities. Sensory grossly intact. Cerebellar exam normal. Normal gait. Psych: Awake, alert, with orientation to person, place and time. Behavior, mood, and affect are within normal limits. 20:20 Cardiovascular: Rate: tachycardic, Rhythm: irregularly irregular, Pulses: no pulse deficits are appreciated, Heart sounds: normal, normal S1and S2, Edema: is not appreciated, JVD: is not appreciated. 20:20 ECG was reviewed by the Attending Physician. Vital Signs: 19:52 BP 109 / 79; Pulse 155; Resp 18 S; Temp 97.6(TE); Pulse Ox 100% on R/A; Weight 91.17 kg ca1 (R); Height 6 ft. 3 in. (190.50 cm) (R); Pain 0/10; 20:30 BP 102 / 84; Pulse 126; Resp 15 S; Pulse Ox 99% on R/A; ca1 20:40 BP 101 / 87; Pulse 126; Resp 16; Pulse Ox 98% on R/A; zb 21:00 BP 97 / 67; Pulse 114; Resp 16; Pulse Ox 100% on R/A; zb 21:53 BP 103 / 58; Pulse 114; Resp 16; Pulse Ox 99% on R/A; zb 22:00 BP 104 / 79; Pulse 119; Resp 16; Pulse Ox 99% on R/A; zb 22:30 BP 92 / 71; Pulse 110; Resp 16; Pulse Ox 99% on R/A; zb 23:00 BP 101 / 73; Pulse 103; Resp 16; Pulse Ox 99% on R/A; zb 04/21 00:17 BP 109 / 77; Pulse 87; Resp 16; Pulse Ox 100% on R/A; zb 04/20 19:52 Body Mass Index 25.12 (91.17 kg, 190.50 cm) ca1 MDM: 04/20 21:18 Differential diagnosis: arrythmia, dehydration, stress disorder, Palpitations, mh7 Hyperthyroidism. Data reviewed: vital signs, nurses notes, old medical records, lab test result(s), cardiac enzymes, CBC, electrolytes, EKG, radiologic studies, plain films. Data interpreted: Pulse oximetry: on room air is 99 %. Interpretation: normal. Counseling: I had a detailed discussion with the patient and/or guardian regarding: the historical points, exam findings, and any diagnostic results supporting the discharge/admit diagnosis, lab results, radiology results, the need for further work-up and treatment in the hospital. Response to treatment: the patient's symptoms have mildly improved after treatment. 21:20 Patient medically screened. [facility] 04/20 20:03 Order name: Basic Metabolic Panel; Complete Time: 21:14 [facility] 04/20 20:03 Order name: CBC with Diff; Complete Time: 21:02 [facility] 04/20 20:03 Order name: LFT's; Complete Time: 21:14 [facility] 04/20 20:03 Order name: Magnesium; Complete Time: 21:14 [facility] 04/20 20:03 Order name: NT PRO-BNP; Complete Time: 21:14 [facility] 04/20 20:03 Order name: PT-INR; Complete Time: 21:02 [facility] 04/20 20:03 Order name: Troponin (emerg Dept Use Only); Complete Time: 21:14 [facility] 04/20 20:03 Order name: TSH; Complete Time: 21:14 [facility] 04/20 21:23 Order name: Urine Dipstick--Ancillary (enter results) [facility] 04/20 21:37 Order name: Urine Dipstick-Ancillary [facility] 04/20 21:59 Order name: UDS la1 04/20 22:50 Order name: COVID-19 : Document "Date of Symptom Onset" if Symptomatic. 3 04/20 22:50 Order name: Urine Drug Screen [facility] 04/21 00:27 Order name: CORONAVIRUS [facility] 04/20 20:03 Order name: XRAY Chest (1 view) [facility] 04/20 20:03 Order name: EKG; Complete Time: 20:04 [facility] 04/20 20:03 Order name: Cardiac monitoring; Complete Time: 20:15 [facility] 04/20 20:03 Order name: EKG - Nurse/Tech; Complete Time: 20:15 [facility] 04/20 20:03 Order name: IV Saline Lock; Complete Time: 20:15 [facility] 04/20 20:03 Order name: Labs collected and sent; Complete Time: 20:15 [facility] 04/20 20:03 Order name: O2 Per Protocol; Complete Time: 20:15 [facility] 04/20 20:03 Order name: O2 Sat Monitoring; Complete Time: 20:15 [facility] 04/20 20:03 Order name: Urine Dipstick-Ancillary (obtain specimen); Complete Time: 21:16 [facility] 04/21 01:32 Order name: SARS-COV-2 RT PCR EDMS EC:20 Rate is 143 beats/min. Rhythm is irregularly irregular, A fib with Rapid ventricular mh7 response. QRS [place] is Normal. UT interval is shortened. QRS interval is normal. QT interval is normal. No Q waves. T waves are Normal. No ST changes noted. Clinical impression: Atrial Fibrillation. Administered Medications: 20:10 Drug: NS 0.9% 1000 ml Route: IV; Rate: 1000 ml; Site: right antecubital; ca1 04/21 00:03 Follow up: Response: No adverse reaction; IV Status: Completed infusion; IV Intake: zb 1000ml 04/20 20:12 Drug: Lopressor 5 mg Route: IVP; Site: right antecubital; ca1 21:15 Drug: Metoprolol TARTRATE (Lopressor) 25 mg Route: PO; zb 04/21 00:02 Follow up: Response: No adverse reaction; Cardiac rhythm changed 04/20 21:25 Drug: Lopressor 5 mg {Note: 2.5mg given as discussed with MD lockhart and Hospitalist. .} zb Route: IVP; Site: right antecubital; 04/21 00:03 Follow up: Response: No adverse reaction; Cardiac rhythm changed z 04/20 22:35 Drug: Aspirin Chewable Tablet 324 mg Route: PO; zb 04/21 00:02 Follow up: Response: No adverse reaction zb Disposition: 04/20/20 21:20 Hospitalization ordered by Franco Vanegas for Inpatient Admission. Preliminary diagnosis is Atrial Fibrillation with RVR. - Bed requested for Telemetry/MedSurg (Inpatient). - Status is Inpatient Admission. sg - Condition is Stable. - Problem is an acute exacerbation. - Symptoms have improved. Signatures: Dispatcher [employer] EDMS Kraig Clemente RN RN sg Glen Dacosta, GEL COAT SPRAYER-C GEL COAT SPRAYER-Cla1 Stephanie Olsen RN RN cg Nathalie Cedillo RN RN ca1 Yayo Lockhart MD MD 7 Shruthi Willis RN RN zb Corrections: (The following items were deleted from the chart) 01:43 02 21:20 Hospitalization Ordered by Franco Vanegas MD for Inpatient Admission. cg Preliminary diagnosis is Atrial Fibrillation with RVR. Bed requested for Telemetry/MedSurg (Inpatient). Status is Inpatient Admission. Condition is Stable. Problem is an acute exacerbation. Symptoms have improved. mh7 04/21 01:54 01:43 04/20/2020 21:20 Hospitalization Ordered by Franco Vanegas MD for Inpatient sg Admission. Preliminary diagnosis is Atrial Fibrillation with RVR. Bed requested for Telemetry/MedSurg (Inpatient). Status is Inpatient Admission. Condition is Stable. Problem is an acute exacerbation. Symptoms have improved.
--- NOTE | 2020-04-20 21:21 | ER ---
Nurse's Notes [facility] Name: Ector Mary Age: 45 yrs Sex: Male : 1975 Arrival Date: 04/20/2020 Time: 19:43 Bed 14 Private MD: Jamie Mcbride Diagnosis: Atrial Fibrillation with RVR Presentation: 04/20 19:52 Acuity: ANGELO 2 ca1 19:53 Chief complaint: Patient states: HR at 150s at 1500 today. HX of A-fib RVR, on beta ca1 blockers. Reports feeling tired and a little bit lightheaded. Coronavirus screen: Client denies travel out of the [place] in the last 14 days. At this time, the client does not indicate any symptoms associated with coronavirus-19. Ebola Screen: Patient negative for fever greater than or equal to 101.5 degrees Fahrenheit, and additional compatible Ebola Virus Disease symptoms Patient denies exposure to infectious person. Patient denies travel to an Ebola-affected area in the 21 days before illness onset. No symptoms or risks identified at this time. Initial Sepsis Screen: Does the patient meet any 2 criteria? No. Patient's initial sepsis screen is negative. Does the patient have a suspected source of infection? No. Patient's initial sepsis screen is negative. Risk Assessment: Do you want to hurt yourself or someone else? Patient reports no desire to harm self or others. 19:53 Method Of Arrival: Ambulatory ca1 Historical: - Allergies: 20:17 No Known Allergies; ca1 - PMHx: 20:17 Hyperlipidemia; Hypertension; Atrial Fib; ca1 - PSHx: 20:17 toe amputation; ca1 - Immunization history:: Flu vaccine is up to date. - Social history:: Smoking status: Patient denies any tobacco usage or history of. Screenin:51 Abuse screen: Denies threats or abuse. Denies injuries from another. Nutritional zb screening: No deficits noted. Tuberculosis screening: No symptoms or risk factors identified. Fall Risk None identified. Assessment: 19:57 Reassessment: Dr. Lockhart at bedside. ca1 20:00 General: Appears in no apparent distress. uncomfortable, Behavior is calm, cooperative, zb appropriate for age, Reports fatigue for 0-12 hours. Pain: Denies pain. Neuro: Level of Consciousness is awake, alert, obeys commands, Oriented to person, place, time, situation. Cardiovascular: Heart tones S1 S2 present Capillary refill < 3 seconds in bilateral fingers Patient's skin is warm and dry. Pulses are all present. Rhythm is irregular. Cardiovascular: Rhythm is atrial fibrillation with rapid ventricular response. Respiratory: Airway is patent Respiratory effort is even, unlabored, Respiratory pattern is regular, symmetrical. GI: Abdomen is round non-distended, Bowel sounds present X 4 quads. Abd is soft and non tender X 4 quads. : No signs and/or symptoms were reported regarding the genitourinary system. EENT: No signs and/or symptoms were reported regarding the EENT system. Derm: Skin is intact, is healthy with good turgor, Skin is dry, Skin is normal. Musculoskeletal: Circulation, motion, and sensation intact. Capillary refill < 3 seconds, in bilateral fingers. Range of motion: intact in all extremities. 20:50 Reassessment: Hospitalist at bedside. zb 21:52 Reassessment: Patient appears in no apparent distress at this time. Patient and/or zb family updated on plan of care and expected duration. Pain level reassessed. Patient is alert, oriented x 3, equal unlabored respirations, skin warm/dry/pink. pt heart rated currently 111-120's. lying in bed awaiting admission. 22:00 Reassessment: Patient appears in no apparent distress at this time. Patient and/or zb family updated on plan of care and expected duration. Pain level reassessed. Patient is alert, oriented x 3, equal unlabored respirations, skin warm/dry/pink. pt calmly waiting a room. no changes at this time. 23:06 Reassessment: Patient appears in no apparent distress at this time. Patient and/or zb family updated on plan of care and expected duration. Pain level reassessed. Patient is alert, oriented x 3, equal unlabored respirations, skin warm/dry/pink. pt awaiting covid swab. heart remain high 90's to 110's. Vital Signs: 19:52 BP 109 / 79; Pulse 155; Resp 18 S; Temp 97.6(TE); Pulse Ox 100% on R/A; Weight 91.17 kg ca1 (R); Height 6 ft. 3 in. (190.50 cm) (R); Pain 0/10; 20:30 BP 102 / 84; Pulse 126; Resp 15 S; Pulse Ox 99% on R/A; ca1 20:40 BP 101 / 87; Pulse 126; Resp 16; Pulse Ox 98% on R/A; zb 21:00 BP 97 / 67; Pulse 114; Resp 16; Pulse Ox 100% on R/A; zb 21:53 BP 103 / 58; Pulse 114; Resp 16; Pulse Ox 99% on R/A; zb 22:00 BP 104 / 79; Pulse 119; Resp 16; Pulse Ox 99% on R/A; zb 22:30 BP 92 / 71; Pulse 110; Resp 16; Pulse Ox 99% on R/A; zb 23:00 BP 101 / 73; Pulse 103; Resp 16; Pulse Ox 99% on R/A; zb 02 00:17 BP 109 / 77; Pulse 87; Resp 16; Pulse Ox 100% on R/A; zb 04/20 19:52 Body Mass Index 25.12 (91.17 kg, 190.50 cm) ca1 ED Course: 04/20 19:43 Patient arrived in ED. am2 19:43 Jamie Mcbride MD is Private Physician. am2 19:51 Yayo Lockhart MD is Attending Physician. mh7 19:52 Triage completed. ca1 19:53 Arm band placed on right wrist. ca1 19:57 Shruthi Willis, MAT is Primary Nurse. zb 20:00 EKG completed in triage. Results shown to MD. ca1 20:05 Inserted saline lock: 20 gauge in right antecubital area, using aseptic technique. ca1 Blood collected. 20:05 Initial lab(s) drawn, by de, sent to lab. ca1 20:21 XRAY Chest (1 view) In Process Unspecified. EDMS 20:51 Patient has correct armband on for positive identification. environmental monitoring specialist on. Pulse zb ox on. NIBP on. Door closed. Noise minimized. 21:19 Franco Vanegas MD is Hospitalizing Provider. mh7 22:35 UDS Sent. zb 04/21 00:02 COVID-19 : Document "Date of Symptom Onset" if Symptomatic. Sent. zb 01:49 No provider procedures requiring assistance completed. Patient admitted, IV remains in sg place. intact, No redness/swelling at site. Administered Medications: 04/20 20:10 Drug: NS 0.9% 1000 ml Route: IV; Rate: 1000 ml; Site: right antecubital; ca1 04/21 00:03 Follow up: Response: No adverse reaction; IV Status: Completed infusion; IV Intake: zb 1000ml 04/20 20:12 Drug: Lopressor 5 mg Route: IVP; Site: right antecubital; ca1 21:15 Drug: Metoprolol TARTRATE (Lopressor) 25 mg Route: PO; zb 04/21 00:02 Follow up: Response: No adverse reaction; Cardiac rhythm changed zb 04/20 21:25 Drug: Lopressor 5 mg {Note: 2.5mg given as discussed with MD lockhart and Hospitalist. .} zb Route: IVP; Site: right antecubital; 04/21 00:03 Follow up: Response: No adverse reaction; Cardiac rhythm changed zb 04/20 22:35 Drug: Aspirin Chewable Tablet 324 mg Route: PO; zb 04/21 00:02 Follow up: Response: No adverse reaction zb Intake: 00:03 IV: 1000ml; Total: 1000ml. zb Outcome: 04/20 21:20 Decision to Hospitalize by Provider. [facility] 04/21 01:49 Admitted to Tele accompanied by tech, room 203, with chart, Report called to mesfin Galloway RN Condition: good Instructed on the need for admit, safety practices, Demonstrated understanding of instructions. 01:54 Patient left the ED. mesfin Signatures: Dispatcher [employer] EDMS Kraig Clemente RN RN sg Hailey Murguia 2 Nathalie Cedillo RN RN ca1 Yayo Lockhart MD MD Shruthi Moses RN RN zb
--- NOTE | 2020-04-20 21:22 | RAD REPORT ---
EXAM DESCRIPTION: RAD - Chest Single View - 04/20/2020 8:21 pm CLINICAL HISTORY: PALPITATIONS, tachycardia COMPARISON: Portable February 2020 TECHNIQUE: AP portable chest image was obtained 04/20/2020 8:21 pm . FINDINGS: No focal mass consolidation. Interstitial pattern matches comparison. Heart and vasculatur e are normal. No measurable pleural effusion and no pneumothorax. No acute bony abnormality seen. No acute aortic findings suspected. IMPRESSION: No acute cardiopulmonary process. No suspicious change from comparison.
[2020-04-20] MEDS ORDERED: METOPROLOL TAR 25 MG TAB ONE (21:24)
--- NOTE | 2020-04-20 21:25 | P.HP ---
Certification for Inpatient Patient admitted to: Observation With expected LOS: <2 Midnights Patient will require the following post-hospital care: None Practitioner: I am a practitioner with admitting privileges, knowledge of patient current condition, hospital course, and medical plan of care. Services: Services provided to patient in accordance with Admission requirements found in Title 42 Section 412.3 of the Code of Federal Regulations <Glen Dacosta - Last Filed: 04/20/20 21:19> Patient History Date of Service: 04/20/20 Primary Care Provider: Dr. Mcbride, unknown main entree cook and cashier in [place] Reason for admission: Afib RVR History of Present Illness: 45-year-old male history of hypertension, hyperlipidemia, paroxysmal atrial fibrillation presents the emergency department for palpitations. Patient reports that at approximately 3:00 p.m. today he began having palpitations noticed that heart rate was high, presented to the emergency department for evaluation. Upon arrival to the ED patient's heart rate around 150 AFib RVR. Patient given metoprolol IV and p.o., currently rate around 115. Patient denies any chest pain, shortness of breath, does report some lightheadedness. Patient denies recreational drug use, states he drinks only 1 cup of coffee per day typically. Lab significant for sodium 146 chloride 110 GFR 67 glucose mildly elevated 137 no history of diabetes BNP 235 thyroid function within normal limits. Patient with history of paroxysmal atrial fibrillation, had 1 episode approximately 1 year ago, was placed on metoprolol succinate 25 mg in addition to his home medications irbesartan and atorvastatin. ED provider wishes to admit under observation for further evaluation and management. - Past Medical/Surgical History Diabetic: No -: hyperlipidemia -: hypertension -: Perforated Diverticulitis -: Paroxysmal atrial fibrillation -: Toe amputation -: colonoscopy -: hemorrhoidectomy -: Colon resection due to perforated diverticulitis with colostomy reversal Psychosocial/ Personal History: Lives at home with - Family History Father -: Cancer Mother -: Heart disease, Hypertension - Social History Smoking Status: Never smoker Alcohol use: No CD- Drugs: No Caffeine use: Yes Place of Residence: Home <Glen Dacosta - Last Filed: 04/20/20 21:19> Date of Service: 04/29/20 <Franco Vanegas - Last Filed: 04/29/20 20:38> Allergies No Known Allergies Allergy (Verified 02/05/20 12:11) Home Medications: Atorvastatin Calcium [Lipitor*] 20 mg PO BEDTIME 11/08/19 Irbesartan [Avapro*] 150 mg PO BEDTIME 11/08/19 Lactobacillus Rhamnosus GG [Culturelle] 1 cap PO DAILY 11/08/19 Rivaroxaban [Xarelto] 20 mg PO DAILY 30 Days #30 tablet 04/22/20 Sotalol HCl [Betapace*] 80 mg PO BID 30 Days #60 tab 04/22/20 Review of Systems 10-point ROS is otherwise unremarkable Cardiovascular: Palpitations, Light Headedness, As per HPI <Glen Dacosta - Last Filed: 04/20/20 21:19> Physical Examination - Physical Exam General: Alert, In no apparent distress HEENT: Atraumatic, PERRLA, Mucous membr. moist/pink Neck: Supple, 2+ carotid pulse no bruit, No LAD Respiratory: Clear to auscultation bilaterally, Normal air movement Cardiovascular: Normal S1 S2, Irregular heart rate/rhythm (AFib RVR rate 115 to 130) Capillary refill: <2 Seconds Gastrointestinal: Normal bowel sounds, No tenderness Musculoskeletal: No tenderness Integumentary: No rashes Neurological: Normal speech, Normal strength at 5/5 x4 extr, Normal tone - Studies Laboratory Data (last 24 hrs) 04/20/20 20:40: PT 15.0 H, INR 1.30 04/20/20 20:40: WBC 8.60, Hgb 14.7, Hct 43.0, Plt Count 270 04/20/20 20:40: Sodium 146 H, Potassium 3.5, BUN 14, Creatinine 1.16, Glucose 137 H, Magnesium 2.3, Total Bilirubin 0.4, AST 21, ALT 36, Alkaline Phosphatase 87 <Glen Dacosta - Last Filed: 04/20/20 21:19> Assessment and Plan - Plan Assessment Paroxysmal atrial fibrillation with RVR not on anticoagulation therapy Hypertension Hyperlipidemia Plan Paroxysmal atrial fibrillation with RVR not on anticoagulation therapy: Monitor on telemetry, cardiology consult in place. Metoprolol for rate control, increase metoprolol succinate 25 mg to 50 mg once daily, SLIM-Vasc score is 1, will continue with aspirin daily at this time, appreciate further recommendations from cardiology. Thyroid function normal, UDS pending. Patient denies recreational drug use, states he drinks only 1 cup of coffee per day. DVT prophylaxis Lovenox 40 mg subcutaneous once daily Hypertension: Continue metoprolol, irbesartan Hyperlipidemia: Continue atorvastatin Discharge Plan: Home Plan to discharge in: 24 Hours - Advance Directives Does patient have a Living Will: No Does patient have a Durable POA for Healthcare: Yes - Code Status/Comfort Care Code Status Assessed: Yes (Full code) Critical Care: No Time Spent Managing Pts Care (In Minutes): 55 <Glen Dacosta - Last Filed: 04/20/20 21:19> - Plan Plan of care reviewed as noted above by Glen Dacosta, and I agree with the management plan as noted above. <Franco Vanegas - Last Filed: 04/29/20 20:38>
[2020-04-20 21:36] LABS: Urine Blood NEGATIVE (NEG); Urine Glucose NEGATIVE (NEG); Urine Protein 1+ (NEG); Urine Specific Gravity >1.030 (1.005-1.030)
[2020-04-20] MEDS ORDERED: ASPIRIN 81 MG CHEWABLE TABLET ONE (22:46)
[2020-04-20 22:49] LABS: Barbiturates NEGATIVE (NEGATIVE); Benzodiazepines NEGATIVE (NEGATIVE); Cocaine NEGATIVE (NEGATIVE); METHAMPHETAM NEGATIVE (NEGATIVE); Methadone NEGATIVE (NEGATIVE); Opiates NEGATIVE (NEGATIVE); Phencyclidine NEGATIVE (NEGATIVE); THC Cannibis NEGATIVE (NEGATIVE)
[2020-04-21] MEDS ORDERED: ONDANSETRON 4 MG/2 ML VIAL IV PRN (02:34)
[2020-04-21 02:45] VITALS: BMI 25.4
[2020-04-21 05:13] LABS: Absolute Lymphocytes (CBC) 1.8 K/uL (0.7-4.9); Basophils % 0.4 % (0-1.3); Hematocrit 39.1 % (39.6-49.0); Lymphocytes % 26.8 % (15.3-44.8); MPV 7.4 fL (7.6-11.3); RBC Red Blood Cell Count 4.32 M/uL (4.33-5.43)
[2020-04-21 05:42] LABS: BUN Blood Urea Nitrogen 12 mg/dL (7-18); Bicarbonate 30 mmol/L (21-32); Glucose Level 103 mg/dL (74-106); Sodium Level 145 mmol/L (136-145)
[2020-04-21] MEDS ORDERED: METOPROLOL XL 50 MG TAB PO SCH (06:00)
[2020-04-21 06:17] LABS: Magnesium 2.2 mg/dL (1.8-2.4); Potassium 4.1 mmol/L (3.5-5.1)
[2020-04-21] MEDS: ASPIRIN EC 81 MG TAB PO SCH (09:19)
[2020-04-21] MEDS: IRBESARTAN 150 MG TAB PO SCH (09:19)
[2020-04-21] MEDS: ENOXAPARIN 40 MG/0.4 ML SQ SCH (09:19)
[2020-04-21] MEDS: SOTALOL HCL 80 MG TAB PO SCH ×2 (16:44→22:03)
--- NOTE | 2020-04-21 18:06 | P.PN ---
Subjective Date of Service: 04/21/20 Primary Care Provider: Dr. 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 [place] Chief Complaint: Afib RVR Subjective: Improving (still in afib, HR controlled in 80s, still feels occasional palpitations, otherwise feeling well) Review of Systems 10-point ROS is otherwise unremarkable Physical Examination - Vital Signs Temperature: 97.7 F Blood Pressure: 105/61 Pulse: 77 Respirations: 18 Pulse Ox (%): 100 - Studies Laboratory Data (last 24 hrs) 04/21/20 04:49: Sodium 145, Potassium 4.1, BUN 12, Creatinine 0.88, Glucose 103, Magnesium 2.2 04/21/20 04:49: WBC 6.70 D, Hgb 13.3 L, Hct 39.1 L, Plt Count 219 04/20/20 20:40: PT 15.0 H, INR 1.30 04/20/20 20:40: WBC 8.60, Hgb 14.7, Hct 43.0, Plt Count 270 04/20/20 20:40: Sodium 146 H, Potassium 3.5, BUN 14, Creatinine 1.16, Glucose 137 H, Magnesium 2.3, Total Bilirubin 0.4, AST 21, ALT 36, Alkaline Phosphatase 87 Assessment & Plan Physician Review Additional Text: Physical Exam: Gen: NAD HEENT: Normal conjunctiva, sclerae anicteric CV: Irregularly irregular rhythm, HR: 80s, no murmur Pulm: CTAB, no w/r/r Abd: soft, NTND Ext: no rash/edema Problem list Paroxysmal atrial fibrillation with RVR not on anticoagulation therapy Hypertension Hyperlipidemia Plan Paroxysmal atrial fibrillation with RVR not on anticoagulation therapy: Monitor on telemetry, cardiology consult in place. Metoprolol increased to 50mg daily, rate slowly increasing discussed with cardiology, start sotalol 80mg BID, EKG after 3rd dose thyroid function normal. VTE: lovenox, CHADSVASc: 1 Hypertension: Continue irbesartan Hyperlipidemia: Continue atorvastatin Dispo: dc home after 3rd dose of sotalol - if EKG ok Time Spent Managing Pts Care (In Minutes): 35
[2020-04-21] MEDS ORDERED: ATORVASTATIN 20 MG TAB PO SCH (21:00)
[2020-04-22 05:05] LABS: Magnesium 2.1 mg/dL (1.8-2.4); Potassium 4.3 mmol/L (3.5-5.1)
[2020-04-22] MEDS: SOTALOL HCL 80 MG TAB PO SCH (05:44)
[2020-04-22] MEDS: ENOXAPARIN 40 MG/0.4 ML SQ SCH (08:02)
[2020-04-22] MEDS: ASPIRIN EC 81 MG TAB PO SCH (08:02)
[2020-04-22] MEDS: IRBESARTAN 150 MG TAB PO SCH (08:05)
--- NOTE | 2020-04-22 11:33 | CON ---
Date of Consultation: 04/22/2020 Reason For Consultation: Atrial fibrillation. History Of Present Illness: Mr. Bush is a 45-year-old, has had a history of hypertension, dyslipid emia, one episode of atrial fibrillation in the past. He has seen a engineering document control clerk in [place], I belie ve, with . He is taking metoprolol, Lipitor, and Avapro. Has recently had abdominal s urgery and then exerted himself quite a bit yesterday and went into atrial fibrillation at a rate of 150. He came to the emergency room, got IV metoprolol. He is now on p.o. sotalol 80 mg b.i.d., kelly ined in atrial fibrillation rate of 80 and with no symptoms. Past Medical History: As stated above. Allergies: NONE. Medications: Listed earlier. Review of Systems: Negative. Social History: Negative. Family History: Negative. Physical Examination: Vital Signs: Stable, afebrile, atrial fibrillation rate of 80. HEENT: Negative. Neck: Supple with no bruit. Chest: Clear. Cardiac: Revealed atrial fibrillation. Abdomen: Benign. Extremities: Revealed no clubbing, cyanosis, or edema. Diagnostic Data: All within normal limits. His TSH is normal. Chest x-ray is normal. EKG showed A Fib. Impression And Plan: Recurrent atrial fibrillation, on sotalol, he is on Lovenox. Echocardiogram is pending. His TSH is normal. I think we need to give him 3 total doses of sotalol and send him home regardless of what his rhythm does. He should be going home on the sotalol and Xarelto and I will s ee him in the next week or two for an EKG, we will decide then whether to do a cardioversion dependin g on his heart rhythm and his symptoms. Echocardiogram is pending. ANUP/RADHA Voice ID: [id number] Report ID: [id number]
[2020-04-22 12:12] VITALS: O2SAT 100
[2020-04-22 13:50] VITALS: BP 115/74; TEMP 97.4
--- NOTE | 2020-04-23 08:57 | ECHO ---
HEIGHT: 6 ft 3 in WEIGHT: 203 lb 8 oz DATE OF STUDY: 04/22/[address]: Josemanuel Dang MD 2-DIMENSIONAL: YES M.MODE: YES DOPPLER: YES COLOR FLOW: YES TDS: PORTABLE: DEFINITY: BUBBLE STUDY: DIAGNOSIS: ATRIAL FIBRILLATION CARDIAC HISTORY: CATHERIZATION: NO SURGERY: NO PROSTHETIC VALVE: NO PACEMAKER: NO MEASUREMENTS (cm) DIASTOLIC (NORMALS) SYSTOLIC (NORMALS) IVSd 1.1 (0.6-1.2) LA Diam 3.3 (1.9-4.0) LVEF 58% LVIDd 4.6 (3.5-5.7) LVIDs 3.2 (2.0-3.5) %FS 30% LVPWd 1.1 (0.6-1.2) Ao Diam 2.7 (2.0-3.7) 2 DIMENSIONAL ASSESSMENT: RIGHT ATRIUM: NORMAL LEFT ATRIUM: NORMAL RIGHT VENTRICLE: NORMAL LEFT VENTRICLE: NORMAL TRICUSPID VALVE: NORMAL MITRAL VALVE: NORMAL PULMONIC VALVE: NORMAL AORTIC VALVE: NORMAL PERICARDIAL EFFUSION: NONE AORTIC ROOT: NORMAL LEFT VENTRICULAR WALL MOTION: NORMAL DOPPLER/COLOR FLOW: NORMAL COMMENTS: NORMAL LEFT VENTRICULAR EJECTION FRACTION 55-60%. NORMAL WALL MOTION. ATRIAL FIBRILLATION. TECHNOLOGIST: ROBERTO RAMOS
--- NOTE | 2020-04-29 19:43 | P.DS ---
Admission Date: 04/20/20 Discharge Date: 04/22/20 Primary Care Provider: Dr. 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 Dang Procedures: Echocardiogram (04/22) - completed, but no read at time of discharge Brief History of Present Illness: 45yo M, PMH: HTN, HLD, Paroxysmal afib, presented to ED due to palpitations that began earlier today. Upon arrival to the ED patient's heart rate around 150 AFib RVR. Patient given metoprolol IV and p.o., with improvement to HR: 115. Patient denies any chest pain, shortness of breath, does report some lightheadedness. Patient denies recreational drug use, states he drinks only 1 cup of coffee per day typically. Labs rather unremarkable. Patient with history of paroxysmal atrial fibrillation, had 1 episode approximately 1 year ago, was placed on metoprolol succinate 25 mg in addition to his home medications irbesartan and atorvastatin. ED provider wishes to admit under observation for further evaluation and management. Hospital Course: The patient was initially continued on a higher dose of metoprolol, however cardiology was consulted and recommended initiation of Sotalol. Patient had improvement of his heart rate and asymptomatic, however remained in atrial fibrillation. Cardiology recommended discharge home on sotalol and anti coagulation. He is to follow up with Cardiology in 1-2 weeks, to consider cardioversion in the near future if remains in AFib and dependent on symptoms. Patient underwent echocardiogram prior to discharge home and will follow up with Cardiology to review the results. Vital Signs/Physical Exam: Physical Exam: Gen: NAD HEENT: Normal conjunctiva, sclerae anicteric CV: Irregularly irregular rhythm, HR: 80s, no murmur Pulm: CTAB, no w/r/r Abd: soft, NTND Ext: no rash/edema Temp Pulse Resp BP Pulse Ox 97.4 F 78 18 115/74 100 04/22/20 12:00 04/22/20 12:00 04/22/20 12:00 04/22/20 12:00 04/22/20 12:00 Laboratory Data at Discharge: WBC 6.70 K/uL (4.3-10.9) D 04/21/20 04:49 Hgb 13.3 g/dL (13.6-17.9) L 04/21/20 04:49 Hct 39.1 % (39.6-49.0) L 04/21/20 04:49 Plt Count 219 K/uL (152-406) 04/21/20 04:49 PT 15.0 SECONDS (9.5-12.5) H 04/20/20 20:40 INR 1.30 04/20/20 20:40 Sodium 145 mmol/L (136-145) 04/22/20 04:41 Potassium 4.3 mmol/L (3.5-5.1) 04/22/20 04:41 BUN 18 mg/dL (7-18) 04/22/20 04:41 Creatinine 0.91 mg/dL (0.55-1.3) 04/22/20 04:41 Glucose 97 mg/dL (74-106) 04/22/20 04:41 Magnesium 2.1 mg/dL (1.8-2.4) 04/22/20 04:41 Total Bilirubin 0.4 mg/dL (0.2-1.0) 04/20/20 20:40 AST 21 U/L (15-37) 04/20/20 20:40 ALT 36 U/L (12-78) 04/20/20 20:40 Alkaline Phosphatase 87 U/L (45-117) 04/20/20 20:40 Home Medications: Atorvastatin Calcium [Lipitor*] 20 mg PO BEDTIME 11/08/19 Irbesartan [Avapro*] 150 mg PO BEDTIME 11/08/19 Lactobacillus Rhamnosus GG [Culturelle] 1 cap PO DAILY 11/08/19 Rivaroxaban [Xarelto] 20 mg PO DAILY 30 Days #30 tablet 04/22/20 Sotalol HCl [Betapace*] 80 mg PO BID 30 Days #60 tab 04/22/20 New Medications: Sotalol HCl [Betapace*] 80 mg PO BID 30 Days #60 tab Rivaroxaban [Xarelto] 20 mg PO DAILY 30 Days #30 tablet Diet: Regular Activity: Ad fabiola Followup: Josemanuel Dang MD [ACTIVE - CAN ADMIT] - Jamie Mcbride MD [Primary Care Provider] - Time spent managing pt's care (in minutes): 40
== END 2020-04-22 13:47 | disposition home or self-care (01) | DRG 310 ==
LOC: ER 19:41 → ERHOLD 21:04 → 2ND 04-21 01:50 → OBSVTOIN 04-21 16:54
PROVIDERS: ADMIT Emergency Medicine; ATTEND Hospitalist
DX: I48.0 Paroxysmal atrial fibrillation (principal); E78.5 Hyperlipidemia, unspecified; I10 Essential (primary) hypertension; Z89.429 Acquired absence of other toe(s), unspecified side; Z79.899 Other long term (current) drug therapy; Z20.822 Contact with and (suspected) exposure to COVID-19
CPT/HCPCS: 36415; 71045; 80048; 80076; 80307; 81003; 83735; 83880; 84443; 84484; 85025; 85610; 93005; 93306; 96361; 96374; 99285; G0378; J1650; J7030; U0003

== ENCOUNTER 2021-11-12 07:29 | Day surgery (SDC) | payer BC ==
--- NOTE | 2021-11-10 09:12 | RAD REPORT ---
EXAM DESCRIPTION: RAD - Chest Pa And Lat (2 Views) - 11/10/2021 8:59 am CLINICAL HISTORY: PRE OP History of AFib COMPARISON: Chest Single View dated 04/20/2020; Chest Single View dated 02/14/2020; Chest Single View d ated 02/14/2020; Chest Single View dated 11/13/2019 FINDINGS: Lines: None. Lungs: No evidence of edema or pneumonia. Pleural: No significant pleural effusions or pneumothorax. Cardiac: The heart size is within normal limits. Mediastinum: Within normal limits. Bones: No acute fractures. Other: None IMPRESSION: No acute cardiopulmonary disease.
[2021-11-10 09:17] LABS: Absolute Lymphocytes (CBC) 1.4 K/uL (0.7-4.9); Hematocrit 44.6 % (39.6-49.0); Lymphocytes % 32.7 % (15.3-44.8); MCV 90.5 fL (80-100); RBC Red Blood Cell Count 4.92 M/uL (4.33-5.43)
[2021-11-10 09:19] LABS: SARS-CoV-2 Antigen Rapid Res Positive (Negative)
[2021-11-10 09:22] LABS: Potassium 4.4 mmol/L (3.5-5.1)
--- NOTE | 2021-11-11 08:16 | EKG ---
Test Date: 2021-11-10 Test Time: 08:47:38 Cardroom Plastic Card Grader: AKSHAT MEASUREMENT RESULTS: Intervals: Rate: 56 WI: 180 QRSD: 80 QT: 396 QTc: 382 [place]: P: 73 WI: 180 QRS: 22 T: 61 INTERPRETIVE STATEMENTS: Sinus bradycardia Otherwise normal ECG Compared to ECG 04/22/2020 06:48:37 Atrial fibrillation no longer present Myocardial infarct finding no longer present Electronically Signed On 11-11-21 08:12:30 CDT by Josemanuel Dang
[2021-11-12] MEDS ORDERED: CEFAZOLIN SODIUM 1 GM/VIAL ONE (07:44)
[2021-11-12] MEDS ORDERED: Ringers Lactate 1,000 ML IV ONE (07:44)
[2021-11-12] MEDS ORDERED: MIDAZOLAM HCL 2 MG/2 ML INJ ONE (08:57)
[2021-11-12] MEDS ORDERED: FENTANYL CITR 100 MCG/2 ML ONE (08:57)
[2021-11-12] MEDS ORDERED: propofoL 200 MG/20 ML VIAL IV ONE (08:57)
[2021-11-12] MEDS ORDERED: ONDANSETRON 4 MG/2 ML VIAL ONE (08:58)
[2021-11-12] MEDS ORDERED: LIDOCAINE 2% MPF 5 ML VIAL ONE (08:58)
[2021-11-12] MEDS ORDERED: BUPIVACAINE 0.5% PF 10 ML VIAL ONE (09:05)
[2021-11-12] MEDS ORDERED: GLYCOPYRROLATE 0.2 MG/ML SYR ONE (09:32)
[2021-11-12] MEDS ORDERED: Mastisol Adhesive Liq ONE (09:35)
[2021-11-12] MEDS ORDERED: HYDROCODONE/APAP 7.5/325 MG TAB PO PRN (09:35)
[2021-11-12] MEDS ORDERED: KETOROLAC 30 MG/ML INJ ONE (09:38)
--- NOTE | 2021-11-12 09:39 | P.OP ---
Date of Service: 11/12/21 Preop diagnosis: Suture granuloma Postop diagnosis: Same Procedure performed: Excision suture granuloma Surgeon: Thierry Saldivar MD Ruling Machine Operator: None Estimated blood loss: Minimal Specimen: Suture granuloma Findings: As above Anesthesia: General Complications: None Drains: None Fluids and blood products: Nonapplicable Disposition: Recovery room Operative note: Patient brought to the OR and placed in supine position. General anesthesia begun. Patient prepped and draped in the usual sterile fashion. Marcaine 0.5% infiltrated locally. Then 15 blade used to make a 2 cm incision over the inferior part of the laparotomy incision where the suture could be felt. Subcutaneous tissue divided. Suture with the knot identified and excised with a granuloma and sent to pathology. 0.5 cm defect remained where the granuloma was. #1 Vicryl used to close that opening. Wound irrigated and bleeding controlled cautery. 3-0 chromic used to approximate subcutaneous tissue and close skin. Sterile dressing applied patient awakened and taken to recovery room in good general condition. CC:
[2021-11-12 10:44] VITALS: BP 139/86; TEMP 97; O2SAT 100
[2021-11-12] MEDS ORDERED: HYDROCODONE/APAP 7.5/325 MG TAB ONE (10:47)
== END 2021-11-12 11:07 | disposition home or self-care (01) ==
LOC: OR 07:29
PROVIDERS: ATTEND Surgery
PROC: 0JB80ZZ Excision of Abdomen Subcutaneous Tissue and Fascia, Open Approach (ICD-10-PCS; principal; 2021-11-12 09:00)
DX: L92.3 Foreign body granuloma of the skin and subcutaneous tissue (principal); U07.1 COVID-19; I10 Essential (primary) hypertension
CPT/HCPCS: 93005; 85025; 80048; 36415; 88304; 71046; 87811; 11402; J2704; J2250; J3010; J7120; J2405; J0690; J2001

== ENCOUNTER 2024-05-10 10:43 | Emergency (ER) | payer BC ==
[2024-05-10 12:18] LABS: Absolute Eosinophils 0.2 K/uL (0-0.5); Absolute Lymphocytes (CBC) 1.4 K/uL (0.7-4.9); Absolute Monocytes 0.4 K/uL (0.1-1.3); Absolute Neutrophil 2.7 K/uL (1.8-8.0); Basophils % 0.6 % (0-1.3); Eosinophils % 3.4 % (0-4.4); Hematocrit 36.6 % (39.6-49.0); Hemoglobin 13.1 g/dL (13.6-17.9); Lymphocytes % 29.2 % (15.3-44.8); MCH 32.2 pg (27.0-35.0); MCHC 35.8 g/dL (32.0-36.0); MCV 90.1 fL (80-100); MPV 7.1 fL (7.6-11.3); Monocytes % 8.5 % (3.3-12.3); Neutrophils % 58.3 % (41.7-73.7); Platelets 219 thou/uL (152-406); RBC Red Blood Cell Count 4.06 M/uL (4.33-5.43); Red Cell Distribution Width 12.3 % (12.1-15.2)
--- NOTE | 2024-05-10 12:28 | RAD REPORT ---
EXAMINATION: ONE VIEW CHEST XR CLINICAL INDICATION: Male, 49 years old.,CHEST PAIN TECHNIQUE: Frontal chest projection is submitted. Examination is limited by patient positioning and t echnique. COMPARISON: 02/22/2023 FINDINGS: The lungs are well inflated and clear. No pneumothorax or sizable effusion. The heart is normal in s ize. Mediastinal contours are unremarkable. IMPRESSION: No acute intrathoracic abnormalities.
[2024-05-10 12:39] LABS: Albumin 3.5 g/dL (3.4-5.0); Anion Gap 8.8 mEq/L (5.0-15.0); Bilirubin Direct 0.2 mg/dL (0-0.2); Bilirubin Indirect, Calculated 0.6 mg/dL (0.2-0.8); Bilirubin Total 0.8 mg/dL (0.2-1.0); Globulin 3.4 g/dL (2.3-3.5); Potassium 3.8 mEq/L (3.5-5.1); Protein, Total 6.9 g/dL (6.4-8.2); Troponin High Sensitivity 6.1 pg/mL (<58.9)
--- NOTE | 2024-05-10 13:34 | ER ---
Nurse's Notes [facility] Name: Ector Mary Age: 49 yrs Sex: Male : 1975 Arrival Date: 05/10/2024 Time: 10:43 Bed 15 Private MD: Diagnosis: Chest pain, unspecified Presentation: 05/10 11:00 Chief complaint: Patient states: he started feeling chest tightness yesterday, and ap3 reports feeling like he has done push-ups. Coronavirus screen: At this time, the client does not indicate any symptoms associated with coronavirus-19. Ebola Screen: No symptoms or risks identified at this time. Initial Sepsis Screen: Does the patient meet any 2 criteria? No. Patient's initial sepsis screen is negative. Does the patient have a suspected source of infection? No. Patient's initial sepsis screen is negative. Risk Assessment: Do you want to hurt yourself or someone else? Patient reports no desire to harm self or others. Onset of symptoms was May 09, 2024. 11:00 Method Of Arrival: Ambulatory ap3 11:00 Acuity: ANGELO 2 ap3 Triage Assessment: 11:03 General: Appears uncomfortable, Behavior is calm, cooperative, appropriate for age. ap3 Pain: Complains of pain in chest Quality of pain is described as tightness. Neuro: Level of Consciousness is awake, alert, obeys commands, Oriented to person, place, time, situation, Appropriate for age. Cardiovascular: Patient's skin is warm and dry. Respiratory: Airway is patent Respiratory effort is even, unlabored, Respiratory pattern is regular, symmetrical. Historical: - Allergies: 11:02 No Known Allergies; ap3 - Home Meds: 11:02 Sotalol Oral [Active]; ap3 - PMHx: 11:02 Atrial Fib; Hyperlipidemia; Hypertension; ap3 - Immunization history:: Client reports having NOT received the Covid vaccine. Flu vaccine is not up to date. - Infectious Disease History:: Denies. - Social history:: Smoking status: Patient denies any tobacco usage or history of. - Family history:: not pertinent. Screenin:05 [facility] ED Fall Risk Assessment (Adult) History of falling in the last 3 months, ap3 including since admission No falls in past 3 months (0 pts) Confusion or Disorientation No (0 pts) Intoxicated or Sedated No (0 pts) Impaired Gait No (0 pts) Mobility Assist Device Used No (0 pt) Altered Elimination No (0 pt) Score/Fall Risk Level 0 - 2 = Low Risk Oriented to surroundings, Maintained a safe environment, Educated pt \T\ family on fall prevention, incl call for assistance when getting out of bed, Assessed \T\ reinforced patient's understanding of fall precautions, Hourly rounding (assess needs \T\ fall precautionary measures) done, Used ambulatory aids as needed (educated on \T\ assisted with). Abuse screen: Denies threats or abuse. Nutritional screening: No deficits noted. Tuberculosis screening: No symptoms or risk factors identified. Assessment: 11:04 General: Appears in no apparent distress. Behavior is calm, cooperative. Pain: Pain kj2 does not radiate. Pain currently is 5 out of 10 on a pain scale. Pain began 1 day ago. Cardiovascular: Patient's skin is warm and dry. Respiratory: Airway Respiratory effort is even, unlabored. GI: No signs and/or symptoms were reported involving the gastrointestinal system. : No signs and/or symptoms were reported regarding the genitourinary system. 12:00 Reassessment: Patient appears in no apparent distress at this time. Patient and/or kj2 family updated on plan of care and expected duration. Pain level reassessed. Patient is alert, oriented x 3, equal unlabored respirations, skin warm/dry/pink. 13:00 Reassessment: Patient appears in no apparent distress at this time. Patient and/or kj2 family updated on plan of care and expected duration. Pain level reassessed. Patient is alert, oriented x 3, equal unlabored respirations, skin warm/dry/pink. 13:50 Reassessment: Patient appears in no apparent distress at this time. Patient and/or kj2 family updated on plan of care and expected duration. Pain level reassessed. Patient is alert, oriented x 3, equal unlabored respirations, skin warm/dry/pink. Vital Signs: 11:00 BP 129 / 82; Pulse 67; Resp 18; Temp 97.9; Pulse Ox 98% ; Weight 98.88 kg; Height 6 ft. ap3 3 in. ; 11:48 BP 113 / 85; Pulse 78; Resp 18; Pulse Ox 100% ; kj2 13:16 BP 118 / 84; Pulse 63; Resp 18; Pulse Ox 100% ; kj2 13:50 BP 120 / 83; Pulse 70; Resp 20; Temp 98; Pulse Ox 100% on R/A; kj2 11:00 Body Mass Index 27.25 (98.88 kg, 190.5 cm) ap3 ED Course: 10:46 Patient arrived in ED. cj3 10:49 Buddy Ambriz MD is Attending Physician. rt 10:54 Margarette Arias, RN is Primary Nurse. kj2 11:00 EKG done, by ED staff, reviewed by Buddy Ambriz MD. ap3 11:02 Triage completed. ap3 11:05 Patient maintains SpO2 saturation greater than 95% on room air. ap3 11:05 Arm band placed on right wrist. ap3 11:05 Client placed on continuous cardiac and pulse oximetry monitoring. NIBP monitoring ap3 applied. awake overnight monitor on. Pulse ox on. NIBP on. 11:15 Patient has correct armband on for positive identification. Bed in low position. Call kj2 light in reach. Side rails up X 1. Provided Education on: call light. 11:51 Inserted saline lock: 20 gauge in right antecubital area, using aseptic technique. td1 11:58 XRAY Chest (1 view) In Process Unspecified. EDMS 12:11 Lab(s) recollected, by me, sent to lab. td1 14:37 No provider procedures requiring assistance completed. IV discontinued, intact, kj2 bleeding controlled, No redness/swelling at site. Pressure dressing applied. Administered Medications: No medications were administered Medication: 11:46 VIS not applicable for this client. kj2 Outcome: 13:34 Discharge ordered by MD. rt 14:37 Discharged to home ambulatory, kj2 14:37 Condition: stable 14:37 Discharge instructions given to patient, Instructed on discharge instructions, follow up and referral plans. Demonstrated understanding of instructions, follow-up care, 14:38 Patient left the ED. kj2 Signatures: Dispatcher [employer] EDMS Hailey Garay RN RN ap3 Buddy Ambriz MD MD rt Margarette Arias RN RN kj2 Lorenzo Zambrano td1 Vandana Mortensen cj3 Corrections: (The following items were deleted from the chart) 11:47 10:05 Patient has correct armband on for positive identification. Bed in low position. kj2 Call light in reach. Side rails up X 1. kj2 11:47 10:05 Provided Education on: call light. kj2 kj2
--- NOTE | 2024-05-10 13:34 | EDPHYS ---
Physician Documentation [facility] Name: Ector Mary Age: 49 yrs Sex: Male : 1975 Arrival Date: 05/10/2024 Time: 10:43 Bed 15 Private MD: ED Physician Buddy Ambriz HPI: 05/10 14:37 This 49 yrs old Male presents to ER via Ambulatory with complaints of Chest Pain. rt 14:37 Patient presents to the ED with 24 hours of chest pain over with pectoral muscles, rt worse on the left compared to the right. Has had occasional palpitation reports compliance with his A-fib medications. He denies other acute complaints at this time, symptoms are moderate in severity, no other aggravating or alleviating factors.. Historical: - Allergies: 11: No Known Allergies; ap3 - Home Meds: 11:02 Sotalol Oral [Active]; ap3 - PMHx: 11:02 Atrial Fib; Hyperlipidemia; Hypertension; ap3 - Immunization history:: Client reports having NOT received the Covid vaccine. Flu vaccine is not up to date. - Infectious Disease History:: Denies. - Social history:: Smoking status: Patient denies any tobacco usage or history of. - Family history:: not pertinent. ROS: 14:37 Constitutional: Negative for fever, chills, and weight loss, Respiratory: Negative for rt shortness of breath, cough, wheezing, and pleuritic chest pain, Abdomen/GI: Negative for abdominal pain, nausea, vomiting, diarrhea, and constipation, MS/Extremity: Negative for injury and deformity, Skin: Negative for injury, rash, and discoloration, Neuro: Negative for headache, weakness, numbness, tingling, and seizure, 14:37 Cardiovascular: Positive for chest pain, Negative for edema, Exam: 14:37 Constitutional: This is a well developed, well nourished patient who is awake, alert, rt and in no acute distress. Head/Face: Normocephalic, atraumatic. Chest/axilla: Normal chest wall appearance and motion. Nontender with no deformity. No lesions are appreciated. Cardiovascular: Regular rate and rhythm with a normal S1 and S2. No gallops, murmurs, or rubs. Normal PMI, no JVD. No pulse deficits. Respiratory: Lungs have equal breath sounds bilaterally, clear to auscultation and percussion. No rales, rhonchi or wheezes noted. No increased work of breathing, no retractions or nasal flaring. Abdomen/GI: Soft, non-tender, with normal bowel sounds. No distension or tympany. No guarding or rebound. No evidence of tenderness throughout. Skin: Warm, dry with normal turgor. Normal color with no rashes, no lesions, and no evidence of cellulitis. MS/ Extremity: Pulses equal, no cyanosis. Neurovascular intact. Full, normal range of motion. Neuro: Awake and alert, GCS 15, oriented to person, place, time, and situation. Cranial nerves II-XII grossly intact. Motor strength 5/5 in all extremities. Sensory grossly intact. Cerebellar exam normal. Normal gait. 14:37 ECG was reviewed by the Attending Physician. Vital Signs: 11:00 BP 129 / 82; Pulse 67; Resp 18; Temp 97.9; Pulse Ox 98% ; Weight 98.88 kg; Height 6 ft. ap3 3 in. ; 11:48 BP 113 / 85; Pulse 78; Resp 18; Pulse Ox 100% ; kj2 13:16 BP 118 / 84; Pulse 63; Resp 18; Pulse Ox 100% ; kj2 13:50 BP 120 / 83; Pulse 70; Resp 20; Temp 98; Pulse Ox 100% on R/A; kj2 11:00 Body Mass Index 27.25 (98.88 kg, 190.5 cm) ap3 MDM: 11:08 Medical Screening Exam initiated rt 14:37 Differential diagnosis: Nonspecific chest pain, chest wall pain, A-fib, ACS, pneumonia, rt pneumothorax. HEART Score: History: Slightly Suspicious (0), ECG: Normal (0), Age: > 45 and < 65 years (1), Risk Factors: 1 or 2 risk factors (1), Troponin: < or = 1 x Normal Limit (0), Total Score = 1. Data reviewed: vital signs, nurses notes, lab test result(s), EKG, radiologic studies. Consideration of Admission/Observation Escalation of care including admission/observation considered. Patient is greater than 24 hours with chest pain, given that if symptoms, unremarkable EKG, troponin, 1 set of enzymes is sufficient to rule out an acute coronary syndrome, believe that he has low risk for discharge at this time he will follow-up with his primary care as an outpatient for further investigation. Strict return precautions were discussed.. Independent interpretation of the following test(s) in the Emergency Department X-Ray: My interpretation is No infiltrate seen on interpretation of x-ray images. Test considered but Not performed: CT: Low suspicion for PE, PE RC negative, CT angiogram is not indicated. Care significantly affected by the following chronic conditions: Atrial fibrillation. Counseling: I had a detailed discussion with the patient and/or guardian regarding the historical points, exam findings, and any diagnostic results supporting the discharge/admit diagnosis, lab results, radiology results, the need for outpatient follow up, to return to the emergency department if symptoms worsen or persist or if there are any questions or concerns that arise at home. Response to treatment: the patient's symptoms have mildly improved after treatment. 05/10 11:15 Order name: Basic Metabolic Panel; Complete Time: 13:04 rt 05/10 11:15 Order name: CBC with Diff; Complete Time: 12:05/10 11:15 Order name: Troponin HS; Complete Time: 13:05/10 11:15 Order name: LFT's; Complete Time: 13:05/10 11:15 Order name: XRAY Chest (1 view); Complete Time: 12:05/10 11:15 Order name: Cardiac monitoring; Complete Time: 11:05/10 11:15 Order name: EKG - Nurse/Tech; Complete Time: 11:41 05/10 11:15 Order name: IV Saline Lock; Complete Time: 11:47 05/10 11:15 Order name: Labs collected and sent; Complete Time: 11:05/10 11:15 Order name: O2 Per Protocol; Complete Time: 11:05/10 11:15 Order name: O2 Sat Monitoring; Complete Time: :05/10 12:39 Order name: Labs - recollect needed: recollect green and lavender top bd EC:37 Rate is 57 beats/min. Rhythm is regular, Sinus bradycardia with No ectopy. QRS [place] is rt Normal. NE interval is normal. QRS interval is normal. QT interval is normal. No Q waves. T waves are Normal. No ST changes noted. Interpreted by me. Administered Medications: No medications were administered Disposition Summary: 05/10/24 13:34 Discharge Ordered Notes: Location: Home rt Problem: new rt Symptoms: have improved rt Condition: Stable rt Diagnosis - Chest pain, unspecified rt Followup: rt - With: Private Physician - When: 2 - 3 days - Reason: Discharge Instructions: - Discharge Summary Sheet rt - Nonspecific Chest Pain, Adult rt Forms: - Medication Reconciliation Form rt - Antibiotic Education rt - Prescription Opioid Use rt - Patient Portal Instructions rt - Leadership Thank You Letter rt Signatures: Dispatcher [employer] EDMS Debbie Meza Amanda, RN RN ap3 Buddy Ambriz MD MD rt Corrections: (The following items were deleted from the chart) 11:15 11:15 BASIC METABOLIC PANEL+C.LAB.BRZ ordered. EDMS EDMS 11:15 11:15 CBC+H.LAB.BRZ ordered. EDMS EDMS 11:15 11:15 Troponin High Sensitivity+C.LAB.BRZ ordered. EDMS EDMS 11:15 11:15 Chest Single View+RAD.RAD.BRZ ordered. EDMS EDMS 11:15 11:15 HEPATIC FUNCTION+C.LAB.BRZ ordered. EDMS EDMS
[2024-05-10 14:44] VITALS: O2SAT 100
[2024-05-10 14:48] VITALS: BP 120/83; TEMP 98
--- NOTE | 2024-05-11 16:47 | EKG ---
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
== END 2024-05-10 14:38 | disposition home or self-care (01) ==
LOC: ER 10:43
DX: R07.9 Chest pain, unspecified (principal); I48.91 Unspecified atrial fibrillation; I10 Essential (primary) hypertension; E78.5 Hyperlipidemia, unspecified; Z28.310 Unvaccinated for COVID-19
CPT/HCPCS: 36415; 71045; 80048; 80076; 84484; 85025; 93005; 99284